=== PATIENT | female | born 1960 | race Caucasian/White ===

== ENCOUNTER 2017-08-05 09:04 | Emergency (ER) | payer BC, SELFPAY ==
[2017-08-05 09:26] VITALS: BP 122/77; PULSE 74; RESP 16; TEMP 36.5; O2SAT 98; BMI 27.9
--- NOTE | 2017-08-05 09:37 | HMH.EDUTC ---
[facility] [place] Clinical Impression: URI (upper respiratory infection) Qualifiers: URI type: unspecified URI Qualified Code(s): J06.9 - Acute upper respiratory infection, unspecified Disposition: Home, Self-Care Condition on Discharge: Good Instructions: Sore Throat Additional Instructions: * Monitor Temp. Tylenol and/or Ibuprofen as needed. ER if fever is no less than 101 despite alternating Tylenol and Ibuprofen * Encourage fluids, water, Gatorade, powerade, pedialyte if /toddler/or child * Warm salt water gargles for throat irritation *Warm fluids *Sore throat lozenges *Sleep elevated *humidifier or vaporizer Lots of rest Increase fluids, water, Gatorade, powerade *Your throat swab was sent to lab for culture. Those results area typically sent to your primary care physician. Be sure to follow up in 2-3 days if no improvement so they can review those results and treat if necessary If you dont have primary care I recommend you get one, but in the mean time you will have to return to a walk in clinic Follow up IMMEDIATELY for new or worsening of symptoms OR no noticeable improvement over the next 48-72 hours. 911 immediately for any life threatening symptoms such as chest pain or difficulty breathing Prescriptions: Azithromycin [Z-Rafael 250mg Tab] 250 mg PO UD DOSE PK #6 tab Time of Disposition: 09:53 Medical Decision Making - Medical Records Medical records reviewed: Yes: I reviewed the patient's medical records. - Elijah Inquiry Pt receiving controlled substance: No Elijah was queried for this patient: No Vital Signs: 08/05/17 09:26 Temperature 97.7 F Temperature Source Temporal Artery Scan Pulse Rate [Right] 74 Respiratory Rate 16 Blood Pressure [Right Arm] 122/77 Blood Pressure Mean [Right Arm] 92 Blood Pressure Source [Right Arm] Automatic Cuff Blood Pressure Position [Right Arm] Sitting 02 Sat by Pulse Oximetry 98 Oxygen Delivery Method Room Air - Lab Data Lab results reviewed: Yes: I reviewed the patient's lab results. [facility] H[place] - General Stated complaint: sore throat ear pain Time Seen by Provider: 08/05/17 09:30 Mode of Arrival: Ambulatory Source of Information: Patient Limitations: No Limitations Description of Symptoms (Recalled from Triage Doc. by RN): SORE THROAT, EAR ACHE 2 DAYS HEENT Symptoms (Recalled from RN notes): Yes Resp Symptoms (Recalled from RN notes): No Skin Symptoms (Recalled from RN notes): No MS Symptoms (Recalled from RN notes): No Functional Status (Recalled from RN notes): N - History of Present Illness Provider Complaint: Patient state that she has been having sore throat and ear pressure for several days now that has not improved State that she also feels like she has some swollen lymph nodes on left side of neck State that she was recently exposed to strep throat - Related Data Home Medications Medication Instructions Recorded Confirmed Meloxicam [Meloxicam] 15 mg PO DAILY 08/05/17 08/05/17 Verapamil HCl [Verapamil ER] 120 mg PO DAILY 08/05/17 08/05/17 Previous Rx's Medication Instructions Recorded Azithromycin [Z-Rafael 250mg Tab] 250 mg PO UD DOSE PK #6 tab 08/05/17 Allergies Allergy/AdvReac Type Severity Reaction Status Date / Time amoxicillin [From AUGMENTIN] Allergy Unknown Unverified 05/11/17 14:54 clavulanic acid Allergy Unknown Unverified 05/11/17 14:54 [From AUGMENTIN] codeine [CODEINE] Allergy Unknown Verified 08/05/17 09:29 - Worker's Comp Is this a Worker's Comp case?: No [facility] History I have reviewed the patient's past medical history: Yes - Social History Alcohol Intake: never - Psychiatric History Expresses thoughts of harming self/others: None Suicide Plan Description: No Plan ROS Obtained: Yes All systems reviewed & no additional complaints - Constitutional Constitutional: Reports chills, Denies fever(s) - ENT Ears, Nose, Mouth, and Throat: Reports sore throat Physical Exam - General
[2017-08-05 09:39] LABS: UTC Strep Screen (Rapid) Negative (Negative)
--- NOTE | 2017-08-05 09:41 | ED_ITS ---
[facility] [place] Disposition Clinical Impression: URI (upper respiratory infection) Qualifiers: URI type: unspecified URI Qualified Code(s): J06.9 - Acute upper respiratory infection, unspecified Disposition: Home, Self-Care Condition on Discharge: Good Instructions: Sore Throat Additional Instructions: * Monitor Temp. Tylenol and/or Ibuprofen as needed. ER if fever is no less than 101 despite alternating Tylenol and Ibuprofen * Encourage fluids, water, Gatorade, powerade, pedialyte if infant/toddler/or child * Warm salt water gargles for throat irritation *Warm fluids *Sore throat lozenges *Sleep elevated *humidifier or vaporizer Lots of rest Increase fluids, water, Gatorade, powerade *Your throat swab was sent to lab for culture. Those results area typically sent to your primary care physician. Be sure to follow up in 2-3 days if no improvement so they can review those results and treat if necessary If you don? t have primary care I recommend you get one, but in the mean time you will have to return to a walk in clinic Follow up IMMEDIATELY for new or worsening of symptoms OR no noticeable improvement over the next 48-72 hours. 911 immediately for any life threatening symptoms such as chest pain or difficulty breathing Prescriptions: Azithromycin [Z-Rafael 250mg Tab] 250 mg PO UD DOSE PK #6 tab Time of Disposition: 09:53 Medical Decision Making - Medical Records Medical records reviewed: Yes: I reviewed the patient's medical records. - Elijah Inquiry Pt receiving controlled substance: No Elijah was queried for this patient: No Vital Signs: 08/05/17 09:26 Temperature 97.7 F Temperature Source Temporal Artery Scan Pulse Rate [Right] 74 Respiratory Rate 16 Blood Pressure [Right Arm] 122/77 Blood Pressure Mean [Right Arm] 92 Blood Pressure Source [Right Arm] Automatic Cuff Blood Pressure Position [Right Arm] Sitting 02 Sat by Pulse Oximetry 98 Oxygen Delivery Method Room Air - Lab Data Lab results reviewed: Yes: I reviewed the patient's lab results. [facility] [place] HPI - General Stated complaint: sore throat ear pain Time Seen by Provider: 08/05/17 09:30 Mode of Arrival: Ambulatory Source of Information: Patient Limitations: No Limitations Description of Symptoms (Recalled from Triage Doc. by RN): SORE THROAT, EAR ACHE 2 DAYS HEENT Symptoms (Recalled from RN notes): Yes Resp Symptoms (Recalled from RN notes): No Skin Symptoms (Recalled from RN notes): No MS Symptoms (Recalled from RN notes): No Functional Status (Recalled from RN notes): N - History of Present Illness Provider Complaint: Patient state that she has been having sore throat and ear pressure for several days now that has not improved State that she also feels like she has some swollen lymph nodes on left side of neck State that she was recently exposed to strep throat - Related Data Home Medications Medication Instructions Recorded Confirmed Meloxicam [Meloxicam] 15 mg PO DAILY 08/05/17 08/05/17 Verapamil HCl [Verapamil ER] 120 mg PO DAILY 08/05/17 08/05/17 Previous Rx's Medication Instructions Recorded Azithromycin [Z-Rafael 250mg Tab] 250 mg PO UD DOSE PK #6 tab 08/05/17 Allergies Allergy/AdvReac Type Severity Reaction Status Date / Time amoxicillin [From AUGMENTIN] Allergy Unknown Unverified 05/11/17 14:54 clavulanic acid Allergy Unknown Unverified 05/11/17 14:
[2017-08-05 09:57] VITALS: BP 127/77; PULSE 74; RESP 16; TEMP 36.6
== END 2017-08-05 10:01 | disposition home or self-care (01) ==
PROVIDERS: Emergency Provider Nurse Practitioner
DX: J06.9 Acute upper respiratory infection, unspecified (principal); Z88.1 Allergy status to other antibiotic agents; Z88.6 Allergy status to analgesic agent
CPT/HCPCS: 87880; 99201

== ENCOUNTER 2019-04-17 17:00 | Outpatient (RCR) | payer BC, SELFPAY ==
--- NOTE | 2019-04-05 17:45 | HMH.PTOPEV ---
PT Outpatient Evaluation Rehab PT Outpatient Evaluation Start: 04/05/19 16:42 Freq: Status: Active Protocol: Document 04/05/19 16:46 [email or web address] (Rec: 04/05/19 17:43 RICKDIRK [id number]) Electronically Signed By Raghu Wahl, PT 04/05/19 16:46 Outpatient Therapy Subjective History Subjective History This is the initial Physical Therapy evaluation for Nisa Hatch. Pt is a 58 y/o female referred to PT for c/o R shoulder pain. Pt reports pain began in january. Pt reports she was mudding and painting a ceiling over a two day period and began noticing pain in R shoulder. Pt reports she was mostly on a ladder painting and mudding overhead and behind her. Pt reports pain gradually increased over several days. Pt reports pain has slowly increased to the point where pain has become almost constant. Chief Complaint Pain Symptom Type Ache,Throb,Sharp,Stabbing Symptoms Relieved By Rest/Positioning,Prescription Meds Symptoms Aggravated By Physical Activity,Lifting Prior Functional Limitations None Current Functional Limitations Reaching,Lifting,Housework, Driving,Recreation Activity Symptom Description Intermittent Level of pain today (0-10) 3 Pain scale - at its best (0-10) 0 Pain scale - at its worst (0-10) 5 Shoulder/Elbow Eval Shoulder Objective Measurements Palpation Tenderness tenderness shoulder exam standard right tenderness over the bicipital tendon right shoulder exam standard tenderness over the SA bursa shoulder right exam standard Shoulder Palpation Findings Tenderness Shoulder ROM Bilateral Shoulder ROM Limitations Pain pain with active ROM shoulder exam right standard full ROM shoulder exam standard bilateral Shoulder MMT Right Shoulder External Rotation Strength 4 Good Grade Shoulder Internal Rotation Strength 4 Good Grade Supraspinatus Strength Grade 4 Good Shoulder Strength Patient Testing Sitting Position Shoulder Special Tests impingement sign present shoulder exam right standard Shoulder Empty Can (Supraspinatus) Test
== END 2019-04-17 17:05 | disposition home or self-care (01) ==
LOC: PT 17:00
PROVIDERS: PCP Family Medicine; Visit Provider Emergency Medicine
DX: S46.811A Strain of other muscles, fascia and tendons at shoulder and upper arm level, right arm, initial encounter (principal)
CPT/HCPCS: 97010; 97014; 97016; 97110; 97163; G0283

== ENCOUNTER → 2019-07-27 10:00 | Outpatient (CLI) | payer BC, SELFPAY ==
--- NOTE | 2019-07-27 10:04 | XR_ITS ---
PROCEDURE: XR SHOULDER RT MIN 2V CLINICAL INDICATION: RT SHOULDER PAIN COMPARISON: No exams were available for comparison FINDINGS: There are mild osteoarthritic changes at the acromioclavicular joint and glenohumeral joint. No fracture or dislocation. No lytic or blastic change. No significant subacromial stenosis. IMPRESSION: Mild osteoarthritic change Dictated by: Denis Mario MD 07/27/2019 16:26 Electronically signed by Denis Mario MD in [place] 07/27/2019 16:26
== END ==
PROVIDERS: PCP Family Medicine; Visit Provider Family Medicine
DX: M25.511 Pain in right shoulder (principal)
CPT/HCPCS: 73030

== ENCOUNTER → 2019-10-23 15:47 | Outpatient (CLI) | payer BC, SELFPAY ==
[2019-10-23 17:29] LABS: Basophils # 0.1 K/mm3 (0-0.2); Basophils % 0.4 % (0.1-2.0); Eosinophils # 0.1 K/mm3 (0.0-0.4); Eosinophils % 0.7 % (0.1-12.0); Hematocrit 48.8 % (37.0-47.0); Lymphocytes # 0.9 K/mm3 (0.7-4.5); Lymphocytes % 6.3 % (10-50); Mean Corpuscular HGB Conc 32.8 g/dL (31.8-35.4); Mean Corpuscular Hemoglobin 31.6 pg (27.0-31.2); Mean Corpuscular Volume 96.6 fl (81-99); Mean Platelet Volume 7.6 fl (7.4-10.4); Monocytes # 0.6 K/mm3 (0.1-1.0); Neutrophils # 12.5 K/mm3 (1.8-7.8); Neutrophils % 88.7 % (37.0-80.0); Platelet Count 245 K/mm3 (142-424); Red Blood Count 5.05 M/mm3 (4.20-5.40); Red Cell Distribution Width 12.7 % (11.5-17.5); White Blood Count 14.1 K/mm3 (4.8-10.8)
[2019-10-23 17:32] LABS: MANUAL DIFFERENTIAL MANUAL DIFFERENTIAL (MANUAL DIFF)
[2019-10-23 19:52] LABS: Strep Scrn Group A (Rapid) Positive (Negative)
[2019-10-23 21:21] LABS: Lymphocytes % 8 % (10-50); Monocytes % 1 % (2-9); Neutrophils % 91 % (42-76); Platelet Estimate Normal; Stomatocytes 1+; Total Cells Counted 100
[2019-10-25 13:48] LABS: Covid-19 Nasal PCR Sendout Lex NOT DETECTED
== END ==
PROVIDERS: PCP Family Medicine; Visit Provider Family Medicine
DX: Z03.818 Encounter for observation for suspected exposure to other biological agents ruled out (principal)
CPT/HCPCS: 85007; 85025; 87430; U0004

== ENCOUNTER → 2019-11-13 14:51 | Outpatient (CLI) | payer BC, SELFPAY ==
--- NOTE | 2019-11-13 14:56 | XR_ITS ---
PROCEDURE: XR LUMBAR SPINE MIN 4V CLINICAL INDICATION: RT SIDE LOW BACK PAIN,DDD COMPARISON: LS5 LUMBAR SPINE 5 VIEWS from 01/10/2014 FINDINGS: Mid lumbar dextro rotatory scoliosis is again noted. Grade 1 anterolisthesis at L4-5 is demonstrated as well as vacuum joint degenerative narrowing at L5-S1. There is no fracture or dislocation. L4-5 and L5-S1 facet arthropathy is demonstrated. IMPRESSION: No significant change. Degenerative scoliosis as above. Dictated by: Win Birmingham 11/13/2019 15:25 Electronically signed by Win Birmingham in [place] 11/13/2019 15:25
== END ==
PROVIDERS: PCP Family Medicine; Visit Provider Family Medicine
DX: M54.41 Lumbago with sciatica, right side (principal); M51.36 Other intervertebral disc degeneration, lumbar region
CPT/HCPCS: 72110

== ENCOUNTER → 2020-04-01 07:42 | Outpatient (CLI) | payer BC, SELFPAY ==
[2020-04-01 08:51] LABS: Basophils % 0.6 % (0.1-2.0); Eosinophils # 0.2 K/mm3 (0.0-0.4); Eosinophils % 3.3 % (0.1-12.0); Hematocrit 45.5 % (37.0-47.0); Hemoglobin 14.9 g/dL (12.2-16.2); Lymphocytes # 2.1 K/mm3 (0.7-4.5); Lymphocytes % 37.3 % (10-50); Mean Corpuscular HGB Conc 32.7 g/dL (31.8-35.4); Mean Corpuscular Hemoglobin 30.6 pg (27.0-31.2); Mean Corpuscular Volume 93.5 fl (81-99); Mean Platelet Volume 8.7 fl (7.4-10.4); Monocytes # 0.4 K/mm3 (0.1-1.0); Monocytes % 7.7 % (1.7-9.3); Neutrophils # 2.9 K/mm3 (1.8-7.8); Neutrophils % 51.1 % (37.0-80.0); Platelet Count 287 K/mm3 (142-424); Red Blood Count 4.87 M/mm3 (4.20-5.40); Red Cell Distribution Width 12.9 % (11.5-17.5); White Blood Count 5.7 K/mm3 (4.8-10.8)
[2020-04-01 09:13] LABS: Chloride 103 mmol/L (98-107); Potassium 4.2 mmoL/L (3.5-5.1); Sodium 140 mmol/L (136-145)
[2020-04-01 09:15] LABS: Blood Urea Nitrogen 15 mg/dl (7-17); Estimated Glomerular Filt Rate 102 ml/min (>60); GFR (African American) 123 ML/MIN (>60)
[2020-04-01 09:16] LABS: Alanine Aminotransferase 194 U/L (12-78); Albumin Level 4.5 g/dl (3.5-5.0); Albumin/Globulin Ratio 1.5 (1.1-1.8); Alkaline Phosphatase 84 U/L (38-126); Anion Gap 12.2 mEq/L (5-15); Aspartate Amino Transferase 92 U/L (14-36); Bilirubin,Total 0.4 mg/dl (0.2-1.3); Calcium 10.2 mg/dl (8.4-10.2); Carbon Dioxide 29 mmol/L (22.0-30.0); Chol/HDL Ratio 3.4 (1-3.5); Cholesterol 181 mg/dl (140-200); Globulin 3.1 g/dL (1.3-3.2); Glucose 94 mg/dl (74-100); HDL Cholesterol 53 mg/dl (40-60); Total Protein,Serum 7.6 g/dl (6.3-8.2); Triglycerides 125 mg/dl (30-150); VLDL Cholesterol 25 mg/dL (0-40)
[2020-04-01 09:27] LABS: Direct LDL Cholesterol 106.22 mg/dL (100-129)
[2020-04-01 10:30] LABS: Vitamin B12 > 1000 pg/mL (239-931)
[2020-04-03 10:47] LABS: Ceruloplasmin 25.7 mg/dL (19.0-39.0)
[2020-04-07 08:00] LABS: Vitamin B6 6.5 ug/L (2.0-32.8)
[2020-04-08 09:19] LABS: 1,25 Dihydroxy Vitamin D 42 pg/mL (.); 1,25-Dihydroxy, Vitamin D-2 <10 pg/mL (.); 1,25-Dihydroxy, Vitamin D-3 41 pg/mL (.)
[2020-04-08 20:55] LABS: Vitamin E Alpha Tocopherol 8.3 mg/L (9.0-29.0)
[2020-04-09 15:21] LABS: Vitamin E Gamma Tocopherol 0.9 mg/L (0.5-4.9)
== END ==
PROVIDERS: Visit Provider Psychiatry & Neurology Neurology
DX: M62.838 Other muscle spasm (principal); G62.9 Polyneuropathy, unspecified; G25.81 Restless legs syndrome; E55.9 Vitamin D deficiency, unspecified; R53.83 Other fatigue; Z79.899 Other long term (current) drug therapy
CPT/HCPCS: 36415; 80053; 80061; 82390; 82525; 82607; 82652; 82746; 84207; 84425; 84446; 85025

== ENCOUNTER 2021-05-31 09:42 | Emergency (ER) | payer BC, SELFPAY ==
[2021-05-31 10:30] VITALS: BP 124/81; PULSE 92; RESP 21; TEMP 36.7; O2SAT 98; BMI 25.2
--- NOTE | 2021-05-31 10:56 | HMH.EDUTC ---
[facility] [place] Disposition Clinical Impression: Strep throat Disposition: Home, Self-Care Condition on Discharge: Good Instructions: Strep Throat, DI for Strep Throat Additional Instructions: *Monitor Temp, Over the counter Motrin or Tylenol as directed/as needed Tylenol every 4 hours and Motrin every 6 hours (as long as your family doctor has told you that you can take it) for fever or pain. and straight to ER if unable to lower temp less than 101.0 after medication given *Warm salt water gargles may help to soothe the throat *Throat Lozenges *Warm fluids like tea with honey may help to soothe the throat *Sleep elevated *Humidifier/Vaporizer *If you did not take Penicillin shot or was unable to, start taking antibiotic immediately and make sure that you take it for the FULL length of time although you should start to feel better in 24-48 hours *change toothbrush and toothpaste 24-48 hours after starting to take antibiotics so you do not reinfect yourself Monitor Temp. Tylenol and/or Ibuprofen as needed. ER if fever is no less than 101 despite alternating Tylenol and Ibuprofen * Encourage fluids, water, Gatorade, powerade, pedialyte if infant/toddler/or child *Cold fluids, popsicles and ice cream may feel good on his throat Follow up IMMEDIATELY for new or worsening symptoms or no Noticeable improvement over the next 48-72 hours. 911 for difficulty breathing or swallowing Referrals: Michael Perdomo MD [Primary Care Provider] - As needed Medical Decision Making - Elijah Inquiry Pt receiving controlled substance: No Elijah was queried for this patient: No Vital Signs: 05/31/21 10:30 05/31/21 11:13 Temperature 98.1 F 98.1 F Temperature Source Oral Pulse Rate 92 H Pulse Rate [Right Brachial] 92 H Respiratory Rate 21 21 Blood Pressure 124/81 Blood Pressure [Right Arm] 124/81 Blood Pressure Mean [Right Arm] 95 Blood Pressure Source [Right Arm] Automatic Cuff Blood Pressure Position [Right Arm] Sitting 02 Sat by Pulse Oximetry 98 Oxygen Delivery Method Room Air - Lab Data Lab results reviewed: Yes: I reviewed the patient's lab results. Lab Results 05/31/21 10:43: Strep Scn Rapid Clinic Negative Orders (Tests/Meds): ED MEDICATIONS Discontinued Medications Generic Name Dose Route Start Last Admin Trade Name Trina PRN Reason Stop Dose Admin Penicillin G Benzathine 1,200,000 unit 05/31/21 11:03 05/31/21 11:11 Penicillin G Benzathine 1,200,000 Units/2ml Syringe IM 05/31/21 11:04 1,200,000 unit ONCE ONE Administration ORDERS Category Date Time Status Strep Screen Confirmation Stat Micro 05/31/21 10:43 Received Medical Decision Narrative: Patient state that she is not able to take Augmentin due to upset stomach and diarrhea but she has taken PCN and amoxicillin in the past without problems or reactions Patient rapid strep negative however exudate noted therefore will treat for strep throat [facility] [place] HPI - General Stated complaint: cough, sore throat, congestion Time Seen by Provider: 05/31/21 10:56 Mode of Arrival: Ambulatory Source of Information: Patient Limitations: No Limitations Description of Symptoms (Recalled from Triage Doc. by RN): PATIENT C/O SORE THROAT AND COUGH X 2 DAYS HEENT Symptoms (Recalled from RN notes): Yes Resp Symptoms (Recalled from RN notes): Yes Skin Symptoms (Recalled from RN notes): No MS Symptoms (Recalled from RN notes): No Functional Status (Recalled from RN notes): WNL - History of Present Illness Provider Complaint: Patient state that she has been having cough and sore throat for several days State that she did a [facility] and they give her some medication for cough State that when she got up this morning her throat was worse and had white patchy like areas like she gets when she has strep throat so she came in to get checked - Related Data Home Medications Medication Instructions Recorded Confirmed Meloxicam 15 mg PO DAILY
[2021-05-31 11:03] LABS: UTC Strep Screen (Rapid) Negative (Negative)
[2021-05-31 11:13] VITALS: BP 124/81; PULSE 92; RESP 21; TEMP 36.7; O2SAT 98
== END 2021-05-31 11:36 | disposition home or self-care (01) ==
PROVIDERS: Emergency Provider Nurse Practitioner; PCP Family Medicine
DX: J02.0 Streptococcal pharyngitis (principal); I10 Essential (primary) hypertension
CPT/HCPCS: 87880; 96372; 99202; G0463; J0561

== ENCOUNTER → 2021-07-25 11:02 | Outpatient (CLI) | payer BC, SELFPAY ==
[2021-07-25 11:43] LABS: Basophils # 0.1 K/mm3 (0-0.2); Basophils % 3.5 % (0.1-2.0); Eosinophils % 0.4 % (0.1-12.0); Hematocrit 46.7 % (37.0-47.0); Hemoglobin 15.3 g/dL (12.2-16.2); Lymphocytes # 1.3 K/mm3 (0.7-4.5); Lymphocytes % 37.5 % (10-50); Mean Corpuscular HGB Conc 32.8 g/dL (31.8-35.4); Mean Corpuscular Hemoglobin 31.1 pg (27.0-31.2); Mean Platelet Volume 8.9 fl (7.4-10.4); Monocytes # 0.4 K/mm3 (0.1-1.0); Monocytes % 11.4 % (1.7-9.3); Neutrophils # 1.6 K/mm3 (1.8-7.8); Neutrophils % 47.3 % (37.0-80.0); Platelet Count 229 K/mm3 (142-424); Red Blood Count 4.92 M/mm3 (4.20-5.40); Red Cell Distribution Width 12.7 % (11.5-17.5); White Blood Count 3.5 K/mm3 (4.8-10.8)
== END ==
PROVIDERS: PCP Physician Assistant; Visit Provider Physician Assistant
DX: U07.1 COVID-19 (principal)
CPT/HCPCS: 36415; 85025; C9803; U0003; U0005

== ENCOUNTER 2021-11-05 16:10 | Observation (INO) | payer BC, OTHER, SELFPAY ==
[2021-11-05 16:24] VITALS: BP 121/73; PULSE 86; RESP 16; TEMP 37.2; O2SAT 98; BMI 27.3
--- NOTE | 2021-11-05 16:59 | CT_ITS ---
PROCEDURE INFORMATION: Exam: CT Abdomen And Pelvis With Contrast Exam date and time: 11/05/2021 7:12 PM Age: 61 years old Clinical indication: Abdominal tenderness; Additional info: Possible diverticulitis TECHNIQUE: Imaging protocol: Computed tomography of the abdomen and pelvis with contrast. Radiation optimization: All CT scans at this facility use at least one of these dose optimization techniques: automated exposure control; mA and/or kV adjustment per patient size (includes targeted exams where dose is matched to clinical indication); or iterative reconstruction. Contrast material: ISOVUE; Contrast volume: 75 ml; Contrast route: IV; Other contrast: Oral; COMPARISON: CR XR LUMBAR SPINE MIN 4V 11/13/2019 2:59 PM FINDINGS: Lungs: Streaky opacities at the lung bases. Liver: Normal. No mass. Gallbladder and bile ducts: No calcified stones. No ductal dilation. Pancreas: Normal enhancement. No ductal dilation. Spleen: There are multiple splenic calcifications likely on the basis of prior granulomatous exposure. Adrenal glands: No mass. Kidneys and ureters: No hydronephrosis. Stomach and bowel: Diverticulosis coli with thickening and inflammatory stranding surrounding the sigmoid colon. Appendix: No evidence of appendicitis. Intraperitoneal space: No free air. No significant fluid collection. Vasculature: No abdominal aortic aneurysm. Lymph nodes: No enlarged lymph nodes. Urinary bladder: No acute abnormality. Reproductive: No acute abnormality. Bones/joints: S shaped curvature of the spine. No fracture. Soft tissues: No soft tissue swelling. IMPRESSION: Diverticulosis coli with thickening and inflammatory stranding surrounding the sigmoid colon compatible with acute diverticulitis.
[2021-11-05 17:03] LABS: Coronavirus 19, PCR Not Detected (NotDetected); Influenza A, PCR Not Detected (NotDetected); Influenza B, PCR Not Detected (NotDetected)
--- NOTE | 2021-11-05 17:04 | HMH.HP ---
*Admission Date: 11/05/21 <Sharmin Ellison 11/05/21 17:10> *Chief complaint: abdominal pain <Sharmin Ellison 11/05/21 17:10> *History of present illness: Ms. Hatch is a 61-year-old female who presented to the office of [facility] today with left lower quadrant pain rated an 8 out of 10 on the pain scale. She states this pain began a little over a week ago and has gotten worse. In the last few days she has run a fever and had chills. She states she has been unable to have a bowel movement the past few days and feels very bloated. She has not been eating or drinking. On her previous colonoscopy, she did have diverticulosis and she is scheduled for another colonoscopy on 12/24/2021. She has not noticed any blood in her stool. She is extremely weak and can barely walk. Evaluation in the office showed a white blood cell count of 16.1. She did have some 1+ leukocytes and trace blood in her urine and this was cultured. It was felt she had a diverticulitis and was admitted for IV antibiotics and a CT scan. <Sharmin Ellison 11/05/21 17:10> [facility] History I have reviewed the patient's past medical history: Yes <Sharmin Ellison 11/05/21 17:10> Medical History: Reports:: Gastroesophageal Reflux Disease(GERD), Hyperlipidemia, Hypertension <Sharmin Ellison 11/05/21 17:10> *Have you ever received a pneumonia vaccine?: No <Sharmin Ellison 11/05/21 17:10> *Have you received a flu vaccine this season?: No <Sharmin Ellison 11/05/21 17:10> Other Medical History: Reports: Arthritis, Hypothyroidism, Other <Sharmin Ellison 11/05/21 17:10> Other Surgeries: Yes: Cholecystectomy, Colonoscopy, Hysterectomy-Partial <Sharmin Ellison 11/05/21 17:10> Amputation: No <Sharmin Ellison 11/05/21 17:10> Fractures: No <Sharmin Ellison 11/05/21 17:10> - *Social History Smoking Status: Never smoker <Sharmin Ellison 11/05/21 17:10> Alcohol Intake: never <[facility] 11/05/21 17:10> Substance Use Type: denies use <[facility] 11/05/21 17:10> *Occupational Status:: other <[facility] 11/05/21 17:10> Housing: house <[facility] 11/05/21 17:10> *Travel in the last 8 weeks: None <[facility] 11/05/21 17:10> Family Hx:: Asthma, Cancer, Hyperlipidemia, Diabetes, Heart Attack, Hypertension, Kidney Disease <[facility] 11/05/21 17:10> Review of Systems - Constitutional Reports chills, Reports fever(s), Reports weakness <[facility] 11/05/21 17:10> - Eyes Denies blurry vision, Denies double vision <[facility] 11/05/21 17:10> - ENT Denies nasal congestion, Denies sore throat [facility] 11/05/21 17:10> - *Cardiovascular Reports shortness of breath, Denies chest pain <[facility] 11/05/21 17:10> - *Respiratory Reports shortness of breath, Denies cough <[facility] 11/05/21 17:10> - *Gastrointestinal Reports abdominal pain, Reports nausea, Denies loose stools, Denies vomiting <[facility] 11/05/21 17:10> - *Genitourinary Denies difficulty urinating, Denies painful urination <[facility] 11/05/21 17:10> - *Musculoskeletal Reports joint pain, Reports body aches <[facility] 11/05/21 17:10> - *Neurologic Reports weakness, Denies headache(s), Denies dizziness <[facility] 11/05/21 17:10> Meds Home Medications Medication Instructions Recorded Confirmed Type Meloxicam 15 mg PO DAILY 08/05/17 11/05/21 History gabapentin 600 mg tablet,extended 600 mg PO BID tab 09/23/17 11/05/21 History release 24 hr Tizanidine HCl [Zanaflex 4mg 4 mg PO HS 05/31/21 11/05/21 History tablet] Levothyroxine Sodium 25 mcg PO DAILY 11/05/21 11/05/21 History [Levothyroxine] <Michael Perdomo - 11/05/21 18:06> Allergies Allergy/AdvReac Type Severity Reaction Status Date / Time amoxicillin [From AUGMENTIN] Allergy Unknown Verified 04/22/19 13:37 codeine [CODEINE] Allergy Unknown Verified 04/22/19 13:37 clavulanic acid AdvReac Unknown Verified 05/31/21 11:01 [Fr
[2021-11-05 17:46] LABS: Basophils # 0.1 K/mm3 (0-0.2); Eosinophils # 0.1 K/mm3 (0.0-0.4); Hematocrit 40.1 % (37.0-47.0); Hemoglobin 13.8 g/dL (12.2-16.2); Lymphocytes # 1.8 K/mm3 (0.7-4.5); Lymphocytes % 13.3 % (10-50); Mean Corpuscular HGB Conc 34.3 g/dL (31.8-35.4); Mean Corpuscular Hemoglobin 32.4 pg (27.0-31.2); Mean Corpuscular Volume 94.5 fl (81-99); Mean Platelet Volume 8.2 fl (7.4-10.4); Monocytes # 0.8 K/mm3 (0.1-1.0); Monocytes % 5.8 % (1.7-9.3); Neutrophils # 10.4 K/mm3 (1.8-7.8); Neutrophils % 78.9 % (37.0-80.0); Platelet Count 258 K/mm3 (142-424); Red Blood Count 4.25 M/mm3 (4.20-5.40); Red Cell Distribution Width 12.7 % (11.5-17.5); White Blood Count 13.2 K/mm3 (4.8-10.8)
[2021-11-05 17:47] LABS: Chloride 101 mmol/L (98-107)
[2021-11-05 17:48] LABS: Potassium 3.6 mmoL/L (3.5-5.1); Sodium 135 mmol/L (136-145)
[2021-11-05 17:50] LABS: Alanine Aminotransferase 148 U/L (12-78); Alkaline Phosphatase 103 U/L (38-126); Anion Gap 12.6 mEq/L (5-15); Aspartate Amino Transferase 112 U/L (14-36); Bilirubin,Total 1.2 mg/dl (0.2-1.3); Blood Urea Nitrogen 8 mg/dl (7-17); Carbon Dioxide 25 mmol/L (22.0-30.0); Creatinine Clearance Estimated 67 mL/min (50-200); Estimated Glomerular Filt Rate 125 ml/min (>60); GFR (African American) 151 ML/MIN (>60)
[2021-11-05 17:51] LABS: Albumin Level 4.4 g/dl (3.5-5.0); Albumin/Globulin Ratio 1.2 (1.1-1.8); Calcium 9.4 mg/dl (8.4-10.2); Globulin 3.6 g/dL (1.3-3.2); Glucose 111 mg/dl (74-100)
[2021-11-05 18:31] LABS: Lactic Acid 1.5 mmol/L (0.7-2.1)
[2021-11-05 20:00] VITALS: BP 125/68; PULSE 70; RESP 21; TEMP 37.2; O2SAT 95
[2021-11-06 04:00] VITALS: BP 132/76; PULSE 76; RESP 18; TEMP 36.6; O2SAT 97
[2021-11-06 05:00] VITALS: BMI 27.3
--- NOTE | 2021-11-06 05:20 | PC.NURSE ---
pt has rested t/o most of shift, has ambulated to BR with standby assist, patient did state she was able to have a small bowel movement this shift, remains on room air with O2 sats 95-97%, no complaints of pain since beginning of shift
--- NOTE | 2021-11-06 07:25 | P.CONPHA_ITS ---
[facility] Pharmacy VTE Monitoring - Patient Demographics Admission date: 11/05/21 Report Date: 11/06/21 Time: 07:25 Allergies/Adverse Reactions: Patient Allergies amoxicillin [From AUGMENTIN] Allergy (Unknown, Verified 04/22/19 13:37) codeine [CODEINE] Allergy (Unknown, Verified 04/22/19 13:37) clavulanic acid [From AUGMENTIN] Adverse Reaction (Unknown, Verified 05/31/21 11:01) Height: 1.63 m Weight: 72.54 kg Patient Problems: Current Active Problems Left lower quadrant pain (Acute) Leukocytosis (Acute) Hypertension (Chronic) Hypothyroidism (Acute) - VTE Risk Labs: VTE Related Lab Results Hgb 13.8 g/dL (12.2-16.2) 11/05/21 17:20 Hct 40.1 % (37.0-47.0) 11/05/21 17:20 Plt Count 258 K/mm3 (142-424) 11/05/21 17:20 BUN 8 mg/dl (7-17) 11/05/21 17:20 Creatinine 0.50 mg/dl (0.52-1.04) L 11/05/21 17:20 Estimated Creat Clear 67 mL/min (50-200) 11/05/21 17:20 VTE Score: 1 - Prophylaxis VTE Prophylaxis Ordered?: Yes Types of VTE Prophylaxis: TEDS Knee High Location of Applied Device: Bilateral Lower Extremeties
--- NOTE | 2021-11-06 07:25 | HMH.PHAINT ---
MEDICATION RECONCILIATION COMPLETED ON PATIENT USING EXTERNAL FILL HISTORY FROM PHARMACY. -DUANE POSEY, MILADISD
[2021-11-06 08:00] VITALS: BP 114/54; PULSE 63; RESP 15; TEMP 36.7; O2SAT 98
--- NOTE | 2021-11-06 08:29 | HMH.ACPN2 ---
<Sharmin Ellison - Last Filed: 11/06/21 08:29> Internal Medicine - PN: Subj *Date: 11/06/21 *Time: 08:29 Interval history: Patient states she is feeling a little bit better this morning. She has been able to have a few small bowel movements and her left lower quadrant pain has improved slightly. She still did not rest well last night. She does want to try some clear liquids this morning. Exam Vital signs and Labs for Last 24 Hours: Temp Pulse Resp BP Pulse Ox 97.8 F 76 18 132/76 97 11/06/21 04:00 11/06/21 04:00 11/06/21 04:00 11/06/21 04:00 11/06/21 04:00 Laboratory Results - last 24 hr 11/05/21 16:52: SARS-CoV-2 (PCR) Not detected, Influenza A Untype (PCR) Not detected, Influenza Type B (PCR) Not detected 11/05/21 17:20: WBC 13.2 H, RBC 4.25, Hgb 13.8, Hct 40.1, MCV 94.5, MCH 32.4 H, MCHC 34.3, RDW 12.7, Plt Count 258, MPV 8.2, Neut % (Auto) 78.9, Lymph % (Auto) 13.3, [place] % (Auto) 5.8, Eos % (Auto) 1.0, Baso % (Auto) 1.0, Neut # (Auto) 10.4 H, Lymph # (Auto) 1.8, [place] # (Auto) 0.8, Eos # (Auto) 0.1, Baso # (Auto) 0.1 11/05/21 17:20: Sodium 135 L, Potassium 3.6, Chloride 101, Carbon Dioxide 25, Anion Gap 12.6, BUN 8, Creatinine 0.50 L, Estimated Creat Clear 67, Estimated GFR 125, Est GFR ( Amer) 151, Glucose 111 H, Calcium 9.4, Total Bilirubin 1.2, AST 112 H, ALT 148 H, Alkaline Phosphatase 103, Total Protein 8.0, Albumin 4.4, Globulin 3.6 H, Albumin/Globulin Ratio 1.2 11/05/21 18:10: Lactate 1.5 I & O for Last 24 hours: Intake & Output 06/11/04/21 11/05/21 11/06/21 11:59 11:59 11:59 11:59 Intake Total 1313 / 1313 Balance 1313 / 1313 Weight 159 lb 14.773 oz - Constitutional no acute distress - *Routine Respiratory Exam Present: CTA bilaterally - *Routine Cardiovascular Exam Present: RRR - *Routine Abdominal Exam Present: soft, normoactive bowel sounds, tenderness (LLQ) - *Routine Extremities Exam Absent: cyanosis, clubbing, edema - *Routine Skin Exam Present: warm. Absent: rash - *Routine Neurological Exam Present: alert, oriented X3 Assessment and Plan (1) Diverticulitis Status: Acute Category: Medical Code(s): K57.92 - Diverticulitis of intestine, part unspecified, without perforation or abscess without bleeding (2) Left lower quadrant pain Status: Acute Category: Medical Code(s): R10.32 - Left lower quadrant pain (3) Leukocytosis Status: Acute Category: Medical Code(s): D72.829 - Elevated white blood cell count, unspecified (4) Hypertension Status: Chronic Category: Medical Code(s): I10 - Essential (primary) hypertension (5) Hypothyroidism Status: Acute Category: Medical Code(s): E03.9 - Hypothyroidism, unspecified - Assessment and plan all Dx Assessment and Plan for all problems:: We will continue IV antibiotics. Will started a clear liquid diet this morning. <Michael Perdomo - Last Filed: 11/06/21 08:33> Internal Medicine - PN: Subj *Date: 11/06/21 *Time: 08:32 Exam Vital signs and Labs for Last 24 Hours: Temp Pulse Resp BP Pulse Ox 97.8 F 76 18 132/76 97 11/06/21 04:00 11/06/21 04:00 11/06/21 04:00 11/06/21 04:00 11/06/21 04:00 Laboratory Results - last 24 hr 11/05/21 16:52: SARS-CoV-2 (PCR) Not detected, Influenza A Untype (PCR) Not detected, Influenza Type B (PCR) Not detected 11/05/21 17:20: WBC 13.2 H, RBC 4.25, Hgb 13.8, Hct 40.1, MCV 94.5, MCH 32.4 H, MCHC 34.3, RDW 12.7, Plt Count 258, MPV 8.2, Neut % (Auto) 78.9, Lymph % (Auto) 13.3, [place] % (Auto) 5.8, Eos % (Auto) 1.0, Baso % (Auto) 1.0, Neut # (Auto) 10.4 H, Lymph # (Auto) 1.8, [place] # (Auto) 0.8, Eos # (Auto) 0.1, Baso # (Auto) 0.1 11/05/21 17:20: Sodium 135 L, Potassium 3.6, Chloride 101, Carbon Dioxide 25, Anion Gap 12.6, BUN 8, Creatinine 0.50 L, Estimated Creat Clear 67, Estimated GFR 125, Est GFR ( Amer) 151, Glucose 111 H, Calcium 9.4, Total Bilirubin 1.2, AST 112 H, ALT 148 H, Alkaline Phosphatase 103, To
--- NOTE | 2021-11-06 15:31 | PC.NURSE ---
patient has done well. no complaints. drinking iced tea. has been up independently to use bathroom. no needs voiced at this time
[2021-11-06 16:00] VITALS: BP 112/58; PULSE 62; RESP 15; TEMP 36.4; O2SAT 98
[2021-11-06 20:00] VITALS: BP 119/70; PULSE 72; RESP 18; TEMP 37.1; O2SAT 98
[2021-11-07 04:00] VITALS: BP 119/63; PULSE 64; RESP 18; TEMP 36.7; O2SAT 97
[2021-11-07 05:00] VITALS: BMI 27.0
[2021-11-07 06:50] LABS: Basophils # 0.1 K/mm3 (0-0.2); Basophils % 1.8 % (0.1-2.0); Eosinophils # 0.2 K/mm3 (0.0-0.4); Eosinophils % 2.8 % (0.1-12.0); Hematocrit 37.7 % (37.0-47.0); Lymphocytes # 1.7 K/mm3 (0.7-4.5); Lymphocytes % 21.6 % (10-50); Mean Corpuscular HGB Conc 34.4 g/dL (31.8-35.4); Mean Corpuscular Hemoglobin 32.7 pg (27.0-31.2); Mean Corpuscular Volume 95.1 fl (81-99); Monocytes # 0.8 K/mm3 (0.1-1.0); Monocytes % 9.3 % (1.7-9.3); Neutrophils # 5.1 K/mm3 (1.8-7.8); Neutrophils % 64.4 % (37.0-80.0); Platelet Count 273 K/mm3 (142-424); Red Blood Count 3.97 M/mm3 (4.20-5.40); Red Cell Distribution Width 12.8 % (11.5-17.5)
[2021-11-07 06:59] LABS: Chloride 108 mmol/L (98-107); Potassium 3.5 mmoL/L (3.5-5.1); Sodium 140 mmol/L (136-145)
[2021-11-07 07:02] LABS: Alanine Aminotransferase 133 U/L (12-78); Albumin Level 3.7 g/dl (3.5-5.0); Albumin/Globulin Ratio 1.2 (1.1-1.8); Alkaline Phosphatase 89 U/L (38-126); Anion Gap 8.5 mEq/L (5-15); Aspartate Amino Transferase 68 U/L (14-36); Bilirubin,Total 0.4 mg/dl (0.2-1.3); Blood Urea Nitrogen 4 mg/dl (7-17); Carbon Dioxide 27 mmol/L (22.0-30.0); Creatinine Clearance Estimated 66 mL/min (50-200); Estimated Glomerular Filt Rate 125 ml/min (>60); GFR (African American) 151 ML/MIN (>60); Globulin 3.1 g/dL (1.3-3.2); Total Protein,Serum 6.8 g/dl (6.3-8.2)
[2021-11-07 07:03] LABS: Glucose 122 mg/dl (74-100)
[2021-11-07 08:00] VITALS: BP 115/74; PULSE 64; RESP 16; TEMP 36.6; O2SAT 98
--- NOTE | 2021-11-07 08:20 | HMH.ACPN2 ---
<Sharmin Ellison - Last Filed: 11/07/21 08:20> Internal Medicine - PN: Subj *Date: 11/07/21 *Time: 08:20 Interval history: Patient is feeling better this morning. She has tolerated her diet. Her pain has improved but has not resolved in the left lower quadrant. She slept last night and wants to go home today. Exam Vital signs and Labs for Last 24 Hours: Temp Pulse Resp BP Pulse Ox 97.8 F 64 16 115/74 98 11/07/21 08:00 11/07/21 08:00 11/07/21 08:00 11/07/21 08:00 11/07/21 08:00 Laboratory Results - last 24 hr 11/07/21 06:15: WBC 8.0 D, RBC 3.97 L, Hgb 13.0, Hct 37.7, MCV 95.1, MCH 32.7 H, MCHC 34.4, RDW 12.8, Plt Count 273, MPV 8.0, Neut % (Auto) 64.4, Lymph % (Auto) 21.6, [place] % (Auto) 9.3, Eos % (Auto) 2.8, Baso % (Auto) 1.8, Neut # (Auto) 5.1, Lymph # (Auto) 1.7, [place] # (Auto) 0.8, Eos # (Auto) 0.2, Baso # (Auto) 0.1 11/07/21 06:15: Sodium 140, Potassium 3.5, Chloride 108 H, Carbon Dioxide 27, Anion Gap 8.5, BUN 4 L D, Creatinine 0.50 L, Estimated Creat Clear 66, Estimated GFR 125, Est GFR ( Amer) 151, Glucose 122 H, Calcium 9.0, Total Bilirubin 0.4, AST 68 H D, ALT 133 H, Alkaline Phosphatase 89, Total Protein 6.8, Albumin 3.7, Globulin 3.1, Albumin/Globulin Ratio 1.2 I & O for Last 24 hours: Intake & Output 11/04/21 11/05/21 11/06/21 11/07/21 11:59 11:59 11:59 11:59 Intake Total 1313 / 1313 950 / 950 Balance 1313 / 1313 950 / 950 Weight 159 lb 14.773 oz 158 lb 6 oz - Constitutional no acute distress - *Routine Respiratory Exam Present: CTA bilaterally - *Routine Cardiovascular Exam Present: RRR - *Routine Abdominal Exam Present: soft, normoactive bowel sounds, tenderness (Left lower quadrant) - *Routine Extremities Exam Absent: cyanosis, clubbing, edema - *Routine Skin Exam Present: warm. Absent: rash - *Routine Neurological Exam Present: alert, oriented X3 Assessment and Plan (1) Diverticulitis Status: Acute Category: Medical Code(s): K57.92 - Diverticulitis of intestine, part unspecified, without perforation or abscess without bleeding (2) Left lower quadrant pain Status: Acute Category: Medical Code(s): R10.32 - Left lower quadrant pain (3) Leukocytosis Status: Acute Category: Medical Code(s): D72.829 - Elevated white blood cell count, unspecified (4) Hypertension Status: Chronic Category: Medical Code(s): I10 - Essential (primary) hypertension (5) Hypothyroidism Status: Acute Category: Medical Code(s): E03.9 - Hypothyroidism, unspecified - Assessment and plan all Dx Assessment and Plan for all problems:: Patient can likely be discharged home today on oral antibiotics. Will discuss with Dr. Perdomo. <Michael Perdomo - Last Filed: 11/07/21 08:54> Internal Medicine - PN: Subj *Date: 11/07/21 *Time: 08:53 Exam Vital signs and Labs for Last 24 Hours: Temp Pulse Resp BP Pulse Ox 97.8 F 64 16 115/74 98 11/07/21 08:00 11/07/21 08:00 11/07/21 08:00 11/07/21 08:00 11/07/21 08:00 Laboratory Results - last 24 hr 11/07/21 06:15: WBC 8.0 D, RBC 3.97 L, Hgb 13.0, Hct 37.7, MCV 95.1, MCH 32.7 H, MCHC 34.4, RDW 12.8, Plt Count 273, MPV 8.0, Neut % (Auto) 64.4, Lymph % (Auto) 21.6, [place] % (Auto) 9.3, Eos % (Auto) 2.8, Baso % (Auto) 1.8, Neut # (Auto) 5.1, Lymph # (Auto) 1.7, [place] # (Auto) 0.8, Eos # (Auto) 0.2, Baso # (Auto) 0.1 11/07/21 06:15: Sodium 140, Potassium 3.5, Chloride 108 H, Carbon Dioxide 27, Anion Gap 8.5, BUN 4 L D, Creatinine 0.50 L, Estimated Creat Clear 66, Estimated GFR 125, Est GFR ( Amer) 151, Glucose 122 H, Calcium 9.0, Total Bilirubin 0.4, AST 68 H D, ALT 133 H, Alkaline Phosphatase 89, Total Protein 6.8, Albumin 3.7, Globulin 3.1, Albumin/Globulin Ratio 1.2 I & O for Last 24 hours: Intake & Output 11/04/21 11/05/21 11/06/21 11/07/21 23:59 23:59 23:59 23:59 Intake Total 1912 830 / 830 Balance 1912 830 / 830 Weight 159 lb 8 oz 159 lb 14.773
--- NOTE | 2021-11-09 23:11 | HMH.DCSUM ---
General - General Admission date:: 11/05/21 Discharge date: 11/07/21 HPI HPI: Ms. Hatch is a 61-year-old female who presented to the office of [facility] today with left lower quadrant pain rated an 8 out of 10 on the pain scale. She states this pain began a little over a week ago and has gotten worse. In the last few days she has run a fever and had chills. She states she has been unable to have a bowel movement the past few days and feels very bloated. She has not been eating or drinking. On her previous colonoscopy, she did have diverticulosis and she is scheduled for another colonoscopy on 12/24/2021. She has not noticed any blood in her stool. She is extremely weak and can barely walk. Evaluation in the office showed a white blood cell count of 16.1. She did have some 1+ leukocytes and trace blood in her urine and this was cultured. It was felt she had a diverticulitis and was admitted for IV antibiotics and a CT scan. Hospital Course Hospital Course: Patient was admitted for IV fluids, IV antibiotics, pain control, and antiemetics. A CT was ordered of the abdomen to rule out diverticulitis. The CT did show acute diverticulitis of the sigmoid colon. The patient improved on the IV antibiotics. She was able to have a few bowel movements and her pain improved. She was started on a clear liquid diet. Her white blood cell count normalized. Her liver function tests improved. She was able to tolerate her diet and wanted to go home. She was discharged on oral antibiotics and will follow-up in the office in 10 days. Objective Vital signs: Temp Pulse Resp BP Pulse Ox 97.8 F 64 16 115/74 98 11/07/21 08:00 11/07/21 08:00 11/07/21 08:00 11/07/21 08:00 11/07/21 08:00 Narrative: - Constitutional Comments: Does not appear to feel well <Sharmin Ellison 11/05/21 17:10> - *Routine HEENT Exam Head: Present: normocephalic <Sharmin Ellison 11/05/21 17:10> Eye: Present: EOMI, PERRL <Sharmin Ellison 11/05/21 17:10> ENT: Present: mucous membranes dry <Sharmin Ellison - 11/05/21 17:10> - *Routine Neck Exam Present: supple. Absent: lymphadenopathy <[facility] 11/05/21 17:10> - *Routine Respiratory Exam Present: CTA bilaterally [facility] 11/05/21 17:10> - *Routine Cardiovascular Exam Present: RRR [facility] 11/05/21 17:10> - *Routine Abdominal Exam Present: soft, normoactive bowel sounds, tenderness (LLQ with guarding) <[facility] 11/05/21 17:10> - *Routine Rectal Exam Rectal:: deferred <[facility] 11/05/21 17:10> - *Routine Genitalia Exam Genitalia:: deferred <[facility] 11/05/21 17:10> - *Routine Extremities Exam Absent: cyanosis, clubbing, edema <[facility] 11/05/21 17:10> - *Routine Skin Exam Present: warm. Absent: rash <[facility] 11/05/21 17:10> - *Routine Neurological Exam Present: alert, oriented X3 Results Labs on day of discharge: Preliminary micro results at discharge 11/05/21 17:20 Blood Culture - Preliminary Blood NO GROWTH AFTER 48 HOURS 11/05/21 17:20 Blood Culture - Preliminary Blood NO GROWTH AFTER 48 HOURS DS: Diagnosis - Discharge Diagnosis (1) Diverticulitis Status: Acute (2) Left lower quadrant pain Status: Acute (3) Leukocytosis Status: Acute (4) Hypertension Status: Chronic (5) Hypothyroidism Status: Acute Discharge Plan - Patient Discharge Instructions ACTIVITY: Continue current activity DIET: advance to your usual diet Patient Instructions: DI for Diverticulitis, DI for Abdominal Pain-Adult Forms: [facility] Work Release - Follow up Plan Follow up with: Michael Perdomo MD [Primary Care Provider] - 11/20/21 10:45 am Disposition: Home, Self-Care Condition at discharge:: Improved Home Medications: Home Medications Medication Instructions Recorded Confirmed Type Meloxicam 15 mg PO DAILY 08/05/17 11/05/21 History lynn
--- NOTE | 2021-11-10 16:42 | CARE MANAGER ---
Patient returned phone call. Discussed discharge from hospital. Patient states that she is doing well. She denies any questions or concerns. She states that she is taking medication as directed and is aware of follow up appointment day and time. OSCAR Ariza
== END 2021-11-07 10:23 | disposition home or self-care (01) | DRG 392 ==
PROVIDERS: Physician Assistant; Admitting Provider Family Medicine; PCP Family Medicine; Referring Provider Family Medicine; Visit Provider Family Medicine
DX: K57.32 Diverticulitis of large intestine without perforation or abscess without bleeding (principal); I10 Essential (primary) hypertension; E03.9 Hypothyroidism, unspecified
CPT/HCPCS: 36415; 74177; 80053; 83605; 85025; 87040; C9803; G0378; J1956; Q9967; U0003; U0005

== ENCOUNTER → 2022-04-29 07:20 | Outpatient (CLI) | payer BC, OTHER, SELFPAY ==
[2022-04-29 10:12] LABS: Alanine Aminotransferase 56 U/L (12-78); Albumin Level 4.1 g/dl (3.5-5.0); Albumin/Globulin Ratio 1.4 (1.1-1.8); Alkaline Phosphatase 92 U/L (38-126); Anion Gap 12.2 mEq/L (5-15); Aspartate Amino Transferase 37 U/L (14-36); Bilirubin,Total 0.5 mg/dl (0.2-1.3); Blood Urea Nitrogen 17 mg/dl (7-17); Calcium 9.5 mg/dl (8.4-10.2); Carbon Dioxide 27 mmol/L (22.0-30.0); Chloride 106 mmol/L (98-107); Estimated Glomerular Filt Rate 101 ml/min (>60); GFR (African American) 123 ML/MIN (>60); Globulin 2.9 g/dL (1.3-3.2); Glucose 88 mg/dl (74-100); Potassium 4.2 mmoL/L (3.5-5.1); Sodium 141 mmol/L (136-145)
[2022-04-29 10:31] LABS: 25-OH Vitamin D, Total 38.2 ng/mL (30-100)
[2022-04-29 11:19] LABS: Vitamin B12 841 pg/mL (239-931)
[2022-04-29 11:20] LABS: Folate > 20.00 ng/mL
== END ==
PROVIDERS: PCP Family Medicine; Visit Provider Psychiatry & Neurology Neurology
DX: G62.9 Polyneuropathy, unspecified (principal); G60.9 Hereditary and idiopathic neuropathy, unspecified; R53.83 Other fatigue; E55.9 Vitamin D deficiency, unspecified
CPT/HCPCS: 36415; 80053; 82306; 82607; 82746

== ENCOUNTER 2024-01-29 17:57 | Emergency (ER) | payer BC, OTHER, SELFPAY ==
[2024-01-29 17:58] VITALS: BP 176/108; PULSE 90; RESP 18; TEMP 36.6; O2SAT 99; BMI 27.4
[2024-01-29] MEDS: OXYMETAZOLINE NASAL SPRAY 0.05% 15ML 15 ML NS (18:03)
[2024-01-29 18:04] VITALS: BP 179/87; PULSE 82; RESP 19; O2SAT 98
--- NOTE | 2024-01-29 18:08 | ED_ITS ---
Discharge Plan Disposition Patient Disposition: Home, Self-Care Condition: Good Prescriptions Prescriptions: No Action gabapentin [Gralise] 600 mg tablet extended release 24 hr 1,200 mg PO HS meloxicam 15 tablet 15 mg PO DAILY Patient Comments: levothyroxine 25 MCG capsule 25 mcg PO DAILY metronidazole 500 MG tablet 500 mg PO TID Qty: 21 0RF levofloxacin 500 MG tablet 500 mg PO DAILY Qty: 7 0RF tizanidine 4 MG tablet 2 - 4 mg PO HS Patient Comments: TAKE 1/2 TO 1 TABLET BY MOUTH EVERY NIGHT AT BEDTIME FOR MUSCLE SPASMS Referrals Follow up/Referrals: Julius Macias MD [Physician] - See instructions Michael Perdomo MD [Primary Care Provider] - See instructions Jorge Alberto Gao MD [Physician] - See instructions Andrey Beatty III, MD [Staff Physician] - See instructions Geneva Infante APRN [Nurse Practitioner] - See instructions Activity Restrictions/Add. Instructions Additional Instructions/Restrictions: You were evaluated in the emergency department today. Please follow-up with ENT. I recommend scheduling appoint with them on Wednesday. Also follow-up close with your primary care provider. Keep an eye on your blood pressure at home. Try the Afrin and nasal clamp at home if you have recurrence of bleeding. Avoid blowing your nose. Return to the emergency department right away for new or worsening symptoms Clinical Impressions Clinical Impression: Epistaxis, High blood pressure Instructions Patient Instructions: DI for Nosebleed Print Language Print Language: Egyptian Discharge ED Provider: Suzanna Hernandez General Adult HPI General Chief complaint: Epistaxis Stated complaint: nose bleed coming out eyes Time Seen by Provider: 01/29/24 18:00 Mode of Arrival: Ambulatory Source of Information: Patient Limitations: No Limitations Description of Symptoms (Recalled from ER Triage Doc. by RN): Reports nose bleeds on and off for 2 months. Her nose started bleeding again approx 45 minutes ago and she became worried when blood started to come from her eye socket. Denies blood thinner use or any truama to her face. History of Present Illness HPI narrative: This patient is a 63-year-old female with a history of hypertension not currently on medication because she notes her blood pressure been doing well and hypothyroidism presenting to the emergency department for evaluation with concern for nosebleed. According to the patient, she has been having nosebleeds on and off for the last 2 months, but the last couple days it has been worse. She had bleeding that started again about 45 minutes ago and blood started coming from the corner of her right eye. Given this, she came right away for further evaluation and management. She notes that she often gets headaches with these nosebleeds. She denies any recent URI symptoms, nasal congestion, or other concerns. She does not take any blood thinners or aspirin. She denies any trauma to the face. No other concerns noted at this time Related Data Home Medications ?Medication ?Instructions ?Recorded ?Confirmed meloxicam 15 mg tablet 15 mg PO DAILY Pain 08/05/17 11/05/21 gabapentin 600 mg tablet,extended 1,200 mg PO HS Pain 09/23/17 11/06/21 release 24 hr (Gralise) tizanidine 4 mg tablet 2 - 4 mg PO HS MUSCLE SPASM 05/31/21 11/06/21 levothyroxine 25 mcg capsule 25 mcg PO DAILY THYROID 11/05/21 11/05/21 Previous Rx's ?Medication ?Instructions ?Recorded levofloxacin 500 mg tablet 500 mg PO DAILY #7 tabs 11/07/21 metronidazole 500 mg tablet 500 mg PO TID #21 tabs 11/07/21 Allergies Allergy/AdvReac Type Severity Reaction Status Date / Time amoxicillin [From AUGMENTIN] Allergy Unknown Verified 04/22/19 13:37 codeine [CODEINE] Allergy Unknown Verified 04/22/19 13:37 clavulanic acid AdvReac Unknown Verified 05/31/21 11:01 [From AUGMENTIN] [facility] Disclaimer: The information contained in this section may have been updated after the patient was seen, as this information can be updated by other users. Social History Smoking Status: Unknown if ever smoked alcohol intake: never substance use type: denies use current occupational status: employed and retired Travel in the last 8 weeks: None household members: spouse housing: house caffeine: No ROS Obtained: Yes All systems reviewed & no additional complaints except as documented Physical Exam General General appearance: alert and in no apparent distress Head Head exam: atraumatic and normocephalic Eye Eye exam: Present normal appearance, PERRL and EOMI ENT ENT exam: Present normal oropharynx, mucous membranes moist, normal external ear exam and other (Epistaxis from R nostril) Neck Neck exam: Present normal inspection, full ROM and trachea midline; Absent tenderness Chest Chest inspection: Present normal inspection and symmetric chest wall rise; Absent tenderness Respiratory Respiratory exam: Present normal lung sounds bilaterally; Absent respiratory distress, wheezes, stridor or accessory muscle use Cardiovascular Cardiovascular exam: Present regular rate and normal rhythm Abdominal Exam Abdominal exam: Present soft; Absent distention, tenderness or guarding Extremities Exam Extremities exam: Present normal inspection, full ROM and normal capillary refill; Absent tenderness or edema Back Exam Back exam: Present normal inspection and full ROM; Absent tenderness Neurological Exam Neurological exam: Present alert, oriented X3, CN II-XII intact and normal gait; Absent motor sensory deficit Psychiatric Psychiatric exam: Present normal affect and normal mood Skin Skin exam: Present warm and dry Medical Decision Making Medical Records Medical records reviewed: Yes I reviewed the patient's medical records. Elijah Inquiry Pt receiving controlled substance: No Vital Signs: 01/29/24 17:58 01/29/24 18:04 01/29/24 18:30 Temperature 97.9 F Temperature Source Oral Pulse Rate 82 68 Pulse Rate [Radial] 90 Respiratory Rate 18 19 18 Blood Pressure 179/87 H 156/91 H Blood Pressure [Right Arm] 176/108 H Blood Pressure Mean 119 112 Blood Pressure Mean [Right Arm] 130 Blood Pressure Source [Right Arm] Automatic Cuff Blood Pressure Position [Right Arm] Sitting 02 Sat by Pulse Oximetry 99 98 96 Oxygen Delivery Method Room Air 01/29/24 19:31 Temperature 98 F Temperature Source Pulse Rate 69 Pulse Rate [Radial] Respiratory Rate 20 Blood Pressure 162/93 H Blood Pressure [Right Arm] Blood Pressure Mean Blood Pressure Mean [Right Arm] Blood Pressure Source [Right Arm] Blood Pressure Position [Right Arm] 02 Sat by Pulse Oximetry Oxygen Delivery Method Room Air Lab Data Lab results reviewed: Yes I reviewed the patient's lab results. Orders (Tests/Meds): ED MEDICATIONS Discontinued Medications Generic Name Dose Route Start Last Admin Trade Name Freq PRN Reason Stop Dose Admin Oxymetazoline HCl 15 ml 01/29/24 18:00 01/29/24 18:03 Oxymetazoline Nasal [place] 0.05% 15ml NS 01/29/24 18:01 15 ml ONCE ONE Administration Medical Decision Narrative: In summary, this patient is a 63-year-old female presenting to the Emergency Department for evaluation of epistaxis. Differential diagnoses considered include but are not limited to anterior nosebleed, posterior nosebleed, nasal polyps. Ruling out the most morbid conditions drove assessment. It should be noted patient's history includes hypertension which is not at goal therapy. This complicates all aspects of care by increasing patient's risk for morbidity. On exam, the patient is well-appearing. She is hypertensive with systolics in the 160s to 170s with epistaxis from the right nose, but otherwise vitals are normal. She has bleeding from the right nose that is very slow on exam. No evidence of bleeding/bruising otherwise. Patient was advised to blow out the clot out of her nose, then aspirate Afrin in both nostrils and applied a nasal clamp. Will reassess to see if this stops the bleeding. On multiple subsequent reassessments, the patient is resting comfortably with no recurrence of epistaxis. Given this, I feel that she is appropriate for discharge home with close follow-up with ENT as well as with her primary care provider for reassessment of her blood pressure. Strict return precautions were given and she was discharged after all questions were answered. Critical Care Critical Care Time Critical Care Time: No
--- NOTE | 2024-01-29 18:27 | PC.NURSE ---
DR CAVAZOS AT BEDSIDE TO REEVALUATE PT
[2024-01-29 18:30] VITALS: BP 156/91; PULSE 68; RESP 18; O2SAT 96
[2024-01-29 19:31] VITALS: BP 162/93; PULSE 69; RESP 20; TEMP 36.6; O2SAT 95
== END 2024-01-29 19:32 | disposition home or self-care (01) ==
PROVIDERS: Emergency Provider Emergency Medicine; PCP Family Medicine
DX: R04.0 Epistaxis (principal); I10 Essential (primary) hypertension; E03.9 Hypothyroidism, unspecified; H11.31 Conjunctival hemorrhage, right eye
CPT/HCPCS: 99283

== ENCOUNTER 2024-12-22 10:48 | Outpatient (CLI) | payer MEDICARE, OTHER, SELFPAY ==
--- OUTSIDE RECORDS SUMMARY | 2019-12-12 11:12 | XMS_ITS | Encounter Summary ---
Author Organization [facility] Address [address] [place] [address] Care Team Providers Care Laydown Machine Operator Name Role Phone Michael Perdomo MD Primary Care Provider [phone] Reason for Referral * Diagnostic Imaging (Routine) - Closed Specialty Diagnoses / Procedures Referred By Contac t Referred To Contact Radiology Diagnoses Postmenopausal bleeding Procedures US Non-ob Transvaginal Cindy German MD [address] [place] [address] Phone: tel: fax: [facility] Phone: tel: Referral ID Status Reason Start Date Expiration Date Visits Re quested Visits Authorized [id number] Closed 12/07/2019 12/06/2020 1 1 Reason for Visit * Diagnostic Imaging (Routine) - Closed Specialty Diagnoses / Procedures Referred By Contac t Referred To Contact Radiology Diagnoses Postmenopausal bleeding Procedures US Non-ob Transvaginal Cindy German MD [address] [place] [address] Phone: tel: fax: [facility] Phone: tel: Referral ID Status Reason Start Date Expiration Date Visits Re quested Visits Authorized [id number] Closed 12/07/2019 12/06/2020 1 1 Encounter Details Date Type Department Care Team (Latest Contact Info) Description 12/12/2019 11:12 AM EDT Hospital Encounter [facility] [phone] Postmenopausal bleeding Social History Tobacco Use Types Packs/Day Years Used Date Smoking Tobacco: Never Smokeless Tobacco: Never Alcohol Use Standard Drinks/Week Comments No 0 (1 standard drink = 0.6 oz pur e alcohol) Comments No Sex and Gender Information Value Date Recorded Sex Assigned at Not on file Legal Sex Female 10:03 AM EDT Gender Identity Not on file Sexual Orientation Not on file documented as of this encounter Plan of Treatment Upcoming Encounters Date Type Department Care Team (Late st Contact Info) Description 09/20/2025 9:30 AM EDT Office Visit [facility] O[facility]YN [address] [facility] [address] [place] [address] Cindy German MD [address] [facility] [address] [place] [address] documented as of this encounter Procedures Procedure Name Priority Date/Time Associated Diagnosis Comments US NON-OB TRANSVAGINAL Routine 12/12/2019 11:56 AM EDT Postmenopausal bleeding documented in this encounter Results * US Non-ob Transvaginal (12/12/2019 11:56 AM EDT) Anatomical Region Laterality Modality Body Ultrasound 12/12/2019 12:4 5 PM EDT Narrative 12/12/2019 12:28 PM EDT PAT NAME: ALIYAH HATCH MED REC#: [id number] DA: [id number] PAT GEND: F PAT TYPE: O EXAM DELISA: [id number] REF PHYS CINDY GERMAN Indication ======== Post Menopausal Bleeding History ====== Previous Outcomes 2 Para 2 Method ======= Voluson E6, Transvaginal ultrasound examination, Color Doppler flow performed, 3D ultrasound examination. View: Adequate view Uterus ====== Uterus: Normal Uterus position: Anteverted Myometrium: Homogeneous Endometrium: Uniform Cervix details: Normal Uterus long 41 mm Uterus ap 21 mm Uterus tr 32 mm Uterus Vol 14.6 cm Endometrial thickness, total 2.2 mm Cervical length 18.3 mm Right Ovary Rt ovary: Normal Rt ovary D1 23.2 mm Rt ovary D2 16.0 mm Rt ovary D3 9.5 mm Rt ovary Vol 1.8 cm Left Ovary ========= Lt ovary: Normal Lt ovary D1 19.1 mm Lt ovary D2 16.8 mm Lt ovary D3 11.00 mm Lt ovary Vol 1.8 cm Cul de Sac ========= Normal Impression ========= Thin, uniform endometrial stripe. Significant endometrial pathology is unlikely Recommendation Follow-up as clinically indicated. Jalousies Installer: Lori Davis RDMS Physician: Libby Schwarz MD Electronically signed by: Libby Schwarz MD at: 12:28 Procedure Note Libby Schwarz MD - 12/12/2019 PAT NAME: ALIYAH HATCH MED REC#: [id number] DA: [id number] PAT GEND: F PAT TYPE: O EXAM DELISA: [id number] REF PHYS ESTEFANI GERMANLEY Indication ======== Post Menopausal Bleeding History ====== Previous Outcomes Gravida2 Para2 Method ======= Volus[place] E6, Transvaginal ultrasound examination, Color Doppler flowperformed, 3D ultrasound examination. View: Adequate view Uterus ====== Uterus:Normal Uterus position:Anteverted Myometrium:Homogeneous Endometrium:Uniform Cervix details:Normal Uterus long41 mm Uterus ap21 mm Uterus tr32 mm Uterus Vol14.6 cm Endometrial thickness, total2.2 mm Cervical .3 mm Right Ovary Rt ovary:Normal Rt ovary D123.2 mm Rt ovary D216.0 mm Rt ovary D39.5 mm Rt ovary Vol1.8 cm Left Ovary ========= Lt ovary:Normal Lt ovary D119.1 mm Lt ovary D216.8 mm Lt ovary D311.00 mm Lt ovary Vol1.8 cm Cul de Sac ========= Normal Impression ========= Thin, uniform endometrial stripe. Significant endometrial pathology isunlikely Recommendation Follow-up as clinically indicated. Jalousies Installer: Lori Davis RDMS Physician: Libby Schwarz MD Electronically signed by: Libby Schwarz MD at: 12:28 us Cindy German MD IMG US ORDERABLES Final Re sult documented in this encounter Visit Diagnoses Diagnosis Postmenopausal bleeding documented in this encounter Additional Health Concerns Infection Onset Date Last Indicated Resolved Time COVID Screen (preop/placement) 12/31/2019 12/31/2019 01/01/2020 11:43 AM EDT documented as of this encounter Care Teams Laydown Machine Operator Relationship Specialty Start Date End Date Michael Perdomo MD [address] [facility] [address] [place] [address] PCP - General 06/05/15 02/18/22 documented as of this encounter
--- OUTSIDE RECORDS SUMMARY | 2024-07-31 05:30 | XMS_ITS ---
[facility] [address] [place] [id number] Care Team Providers Care Laborer Laboratory Name Role Phone Michael Perdomo Primary Care Provider Allergies Allergen (clinical drug ingredient) Drug/Non Drug Allergy documented on EMR Reaction Allergy Type Onset Date Status amoxicillin / clavulanate Augmentin stomach upset Drug Allergy Active codeine Codeine stomach upset Drug Allergy Act gary Results Component Value Reference Range Notes P-Comprehensive Metabolic Pa [place] (CMP) Reviewed date:08/02/2024 12:19:07 PM Interpretation:Normal Performing Lab: Notes/Report: Test performed by [facility] [address] [place] [address] , [address], [place] [address] Osmany Calix MD, Wired [employer] CLIA: [id number] Sodium 142 135-145 mmol/L Potassium 4.8 3.5-5.3 mmol/L Chloride 103 97-108 mmol/L CO2 28 22-32 mmol/L Glucose 94 65-99 mg/dL BUN 9 8-23 mg/dL Creatinine 0.67 0.50-1.00 mg/dL Calcium 10.3 8.6-10.4 mg/dL eGFR by Creatinine 97 >59 mL/min/1.73m2 Protein 7.6 6.0-8.3 g/dL Albumin 4.7 3.5-5.3 g/dL Alkaline Phosphatase 75 35-121 IU/L ALT (SGPT) 42 <5-47 IU/L AST (SGOT) 23 <5-40 IU/L Bilirubin, Total 0.5 <0.2-1.2 mg/dL A/G Ratio 1.6 1.1-2.5 P-T4 Free (thyroxine) Reviewed date:08/02/2024 12:19:06 PM Interpretation:Normal Performing Lab: Notes/Report: Test performed by [facility] [address] [place] [address] [place] [address] Osmany Calix MD, Wired [employer] CLIA: [id number] Thyroxine Free (free T4) 1.00 0.86-1.76 ng/dL P-Lipid Panel Reviewed date:08/02/2024 12:19:07 PM Interpretation:satisfactory Performing Lab: Notes/Report: Test performed by [facility] [address] [place] [address] Osmany Calix MD, Wired Swe[employer] CLIA: [id number] Cholesterol 186 <200 mg/dL Triglycerides 127 <150 mg/dL HDL Cholesterol 56 >39 mg/dL Cholesterol / HDL Ratio 3.32 0.00-4.44 Ratio Non-HDL Cholesterol 130 <130 mg/dL LDL Cholesterol (Calculation) 105 <130 mg/dL LDL Cholesterol Levels* Less than 100 mg/dL Optimal 100 to 129 mg/dL Near Optimal/ Above Optimal 130 to 159 mg/dL Borderline High 160 to 189 mg/dL High 190 mg/dL and above Very High * Categories as recommended by the 2004 ATPIII guidelines LDL/HDL Ratio 1.9 <3.3 Ratio LDL Cholesterol Patient History Test Date: 08/24/2023 LDL Results: 96 Units: mg/dL % Change: - Test Date: 07/31/2024 LDL Results: 105 Units: mg/dL % Change: +9% P-TSH Reviewed date:08/02/2024 12:19:07 PM Interpretation:Normal Performing Lab: Notes/Report: Test performed by [facility] [address] [place] [address] , [facility] [address], [place] [address] Osmany Calix MD, Wired [employer] CLIA: [id number] TSH 4.02 0.43-5.25 mU/L REASON FOR VISIT 6 month check Medications Medication SIG (Take, Route, Frequency, Duration) Notes Start Date End Date Status Levothyroxine Sodium 25 MCG 1 tab(s) ora lly once a day Active Meloxicam 15 MG 1 tab(s) orally once a day Active Nurtec 75 MG 1 tablet on the tong ue and allow to dissolve Orally 07/09/2023 Active Vitamin D3 25 MCG (1000 UT) 1 tab(s) ora lly once a day; Duration: 30 day(s) Active Gralise 600 MG 2 tab(s) orally qhs Active B-12 1000 MCG 1 tab(s) orally once a day; Duration: 30 day(s) Active tiZANidine HCl 4 MG 1 tab(s) orally once daily Active Vital Signs Blood pressure systolic 124 mm Hg 08/01/19 25 Blood pressure diastolic 72 mm Hg 025 Heart Rate 67 /min 07/31/2024 Height 64.25 in 07/31/2024 Weight 165.2 lbs 07/31/2024 BMI 28.13 kg/m2 07/31/2024 Encounters Encounter Location Date Provider Diagnosis [facility] [address] [facility] [address] [place] [id number] 07/31/2024 Michael Perdomo Acquired hypothyroid ism E03.9 ; Pure hypercholesterolemia E78.00 ; Hypertriglyceridemia E78.1 ; Gastroesophageal reflux disease, esophagitis presence not specified K21.9 and Right-sided low back pain with right-sided sciatica, unspecified chronicity M54.41 Assessments Encounter Date Diagnosis (ICD Code) Assessment Notes Treatment Notes Treatment Clinical Notes Section Notes 07/31/2024 Acquired hypothyroid ism (ICD-10 - E03.9) 07/31/2024 Pure hypercholesterolemia (ICD-10 - E78.00) 07/31/2024 Hypertriglyceridemia (ICD-10 - E78.1) 07/31/2024 Gastroesophageal ref lux disease, esophagitis presence not specified (ICD-10 - K21.9) 07/31/2024 Right-sided low back pain with right-sided sciatica, unspecified chronicity (ICD-10 - M54.41) Plan Of Treatment Medication Medication Name Sig Start Date Stop Date Notes Levothyroxine Sodium 25 MCG 1 tab(s) orally once a day Meloxicam 15 MG 1 tab(s) orally once a day Next Appt Details Follow Up: 6 Months, Reason: Provider Name:Michael jernigan, 12/22/2024 10:00:00 AM, [address] [facility], [address], [place], [phone], Provider Name:Michael jernigan, 01/31/2025 09:15:00 AM, [address] [facility], [facility] [address], [place], [phone], Progress Notes * BRIDGET MARTINEZOB:1960 (64 yo F)Acc No.[id number]:07/31/2024 Progress Notes Patient: ALIYAH DENT Provider: Nicole Perdomo M.D. :1960 A ge:63 Y S ex:Female Date:07/31/2024 Address:[address] [place] [address], [id number] Subjective: * Chief Complaints: * 1 . 6 month check. * HPI: C ardiology: 63 year old female presents with c/o Blood Pressure Elevated?Pt here for 6 mo f/u on hypertension, states she is doing well and does not have any concerns.? c/o Hyperlipidemia P t is fasting today. * ROS: D ERMATOLOGY: no R zandra. n o H crista. G ASTROENTEROLOGY: no N ausea. n o V omiting. U ROLOGY: no D ifficulty urinating. n o B lood in urine. * Medical History: H ypertension, Hyperlipidemia, Peripheral Neuropathy, Arthritis, Low Back Pain, Degenerative Disc Disease, Esophageal Reflux, Hiatal Hernia, Esophageal Spasms, Hearing Loss, Carpal Tunnel Syndrome, [employer] - Dr. Fabian, Colon Cancer, Family Hx, Colon Polyps, Diverticulitis, 10/2021. * Surgical History: C holecystectomy 2005, Colonoscopy 2013, 2018, Partial Hysterectomy and Bladder Surgery 12/2019, Colpoperineoohapy w/ Dr Rai 01/02/2020, RT Carpal Tunnel Release 01/2023, LT Carpal Tunnel Release 02/2023. * Hospitalization/Major Diagno stic Procedure: V ertigo, UTI, Hypokalemia- [facility] ER 07/04/2018. * Family History: F ather: , diagnosed with Diabetes, Heart Disease. M other: , diagnosed with Diabetes, Cancer. 3 brother(s) , 3 sister(s) . 2 daughter(s) . . Asthma also runs on her father's side of the family. * Social History: C URRENT TOBACCO USE S moking Status: P atient does NOT smoke. C affeine: no, frequency:. Exercise: yes, 2-3 times weekly. Home smoke detector use: no. * Medications: T aking Gralise 600 MG Tablet 2 tab(s) orally qhs , Taking tiZANidine HCl 4 MG Tablet 1 tab(s) orally once daily , Taking B-12 1000 MCG Tablet 1 tab(s) orally once a day , Taking Vitamin D3 25 MCG (1000 UT) Tablet 1 tab(s) orally once a day , Taking Nurtec 75 MG Tablet Disintegrating 1 tablet on the tongue and allow to dissolve Orally , Taking Levothyroxine Sodium 25 MCG Tablet 1 tab(s) orally once a day , Taking Meloxicam 15 MG Tablet 1 tab(s) orally once a day , Discontinued Cephalexin 500 MG Capsule 1 capsule Orally every 12 hrs , Medication List reviewed and reconciled with the patient * Allergies: C odeine: stomach upset - Allergy, Augmentin: stomach upset - Allergy. Objective: * Vitals: W t:165.2, Temp:97.9, BP:124/72, HR:67, Nurse:samantha, Ht: 64.25, BMI:28.13. * Examination: G eneral Examination: General Appearance: N AD. H EENT: u nremarkable.?Heart: R SR. L ungs: c lear to auscultation. S kin: n ormal, no rash. P eripheral pulses: n ormal (2+) bilaterally. E xtremities: n o leg edema. Assessment: * Assessment: 1. A cquired hypothyroidism - E03.9 (Primary) 2 . P ure hypercholesterolemia - E78.00 3 . H ypertriglyceridemia - E78.1 4 . G astroesophageal reflux disease, esophagitis presence not specified - K21.9 5 . R ight-sided low back pain with right-sided sciatica, unspecified chronicity - M54.41 Plan: * Treatment: Value Reference Range T hyroxine Free (free T4) 1.00 0.86-1.76 - ng/d L * Lara Infante 08/02/2024 12:18:5 1 PM > Pt informed ?LAB: P-TSH (Collection Date & Time - 07/31/2024 09:30 AM)?Normal* Value Reference Range T SH 4.02 0.43-5.25 - mU/L * Lara Infante 08/02/2024 12:18:5 1 PM > Pt informed 2.?Pure hypercholesterolemia?LAB: P-Comprehensive Metabolic Panel (CMP) (Collection Date & Time - 07/31/2024 09:30 AM)?Normal* Value Reference Range A /G Ratio 1.6 1.1-2.5 - * A lbumin 4.7 3.5-5.3 - g/dL * A lkaline Phosphatase 75 35-121 - IU/L * A LT (SGPT) 42 <5-47 - IU/L * A ST (SGOT) 23 <5-40 - IU/L * B ilirubin, Total 0.5 <0.2-1.2 - mg/dL * B UN 9 8-23 - mg/dL * C alcium 10.3 8.6-10.4 - mg/dL * C hloride 103 97-108 - mmol/L * C O2 28 22-32 - mmol/L * C reatinine 0.67 0.50-1.00 - mg/dL * G lucose 94 65-99 - mg/dL * P otassium 4.8 3.5-5.3 - mmol/L * S odium 142 135-145 - mmol/L * P rotein 7.6 6.0-8.3 - g/dL * e GFR by Creatinine 97 >59 - mL/min/1.73m2 * Lara Infante 08/02/2024 12:18:5 1 PM > Pt informed ?LAB: P-Lipid Panel (Collection Date & Time - 07/31/2024 09:30 AM)? satisfactory* Value Reference Range C holesterol / HDL Ratio 3.32 0.00-4.44 - Ratio * C holesterol 186 <200 - mg/dL * H DL Cholesterol 56 >39 - mg/dL * L DL Cholesterol (Calculation) 105 <130 - mg/d L * L DL/HDL Ratio 1.9 <3.3 - Ratio * N on-HDL Cholesterol 130 H <130 - mg/dL * T riglycerides 127 <150 - mg/dL * Lara Infante 08/02/2024 12:18:5 1 PM > Pt informed 3.?Right-sided low back pain with right-sided sciatica, unspecified chronicity? Continue Meloxicam Tablet, 15 MG, 1 tab(s), orally, once a day.?? * Procedure Codes: G 2211 Complex e/m visit add on, 3074F SYST BP LT 130 MM HG, 3078F DIAST BP < 80 MM HG * Follow Up: 6 Months * Images: Billing Information: * Visit Code: 51227 Office Visit, Est Pt., Level 4. * Procedure Codes: G2211 Complex e/m visit add on. 3074F SYST BP LT 130 MM HG. 3078F DIAST BP < 80 MM HG. * Electronic signature of Sydney Perdomo MD on 12/22/2024 at 10:53 AM EDT Sign off status: Pending * Provider: Nicole Perdomo M.D. Date: 07/31/2024 Generated for Farideh callahan/Harshad/eTransmitting on: 0 12/22/2024 10:53 AM EDT History and Physical Notes * HPI (History of Present Illness) Category Sub-Category Detail Notes Category Not es Cardiology Blood Pressure Elevated Pt here for 6 mo f/u on hypertension, states she is doing well and does not have any concerns Hyperlipidemia Pt is fasting today Examination Category Sub-Category Detail Notes Category Not es General Examination HEENT: unremarkable Heart: RSR Lungs: clear to auscultatio n Extremities: no leg edema General Appearance: NAD Skin: normal, no rash Peripheral pulses: normal (2+) bilatera lly
--- OUTSIDE RECORDS SUMMARY | 2024-10-11 04:45 | XMS_ITS ---
Author Organization [facility] [address] [facility] [address] [place] [id number] Care Team Providers Care [employer] Name Role Phone Michael Perdomo Primary Care Provider [phone] Allergies Allergen (clinical drug ingredient) Drug/Non Drug Allergy documented on EMR Reaction Allergy Type Onset Date Status amoxicillin / clavulanate Augmentin stomach upset Drug Allergy Active codeine Codeine stomach upset Drug Allergy Act gary Results Component Value Reference Range Notes Urinalysis - Inhouse Reviewed date:10/11/2024 12:12:08 PM Interpretation: Performing Lab: Notes/Report: Color/Clarity yellow/clear Leuk Trace Nitrite Neg Urobili 3.2 Protein Neg pH 6.0 Blood Neg Sp. Gr. <1.005 Ketone Neg Bili Neg Gluc Neg CBC Fingerstick (in house) Reviewed date:10/11/2024 12:12:15 PM Interpretation: Performing Lab: Notes/Report: wbc 5.4 3.5 - 10 lym 30.6% 15 - 50 mid 6.2% 2 - 15 gran 63.2% 35 - 80 rbc 4.96 3.5 - 5.5 hgb 15.1 11.5 - 16.5 hct 45.8 35 - 55 mcv 92.2 75 - 100 mch 30.4 25 - 35 mchc 32.9 31 - 38 plat 214 100 - 400 P-Culture, Urine Reviewed date:10/13/2024 12:22:06 PM Interpretation:No growth Performing Lab: Notes/Report: Test performed by [employer] [employer] [address] [place] [address] , [address], [place] [address] Osmany Calix MD, Director Of Vocational Guidance IA: [id number] Specimen Source Urine - Void Culture, Urine See Below Final Report : No growth REASON FOR VISIT diverticulitis flare up Medications Medication SIG (Take, Route, Frequency, Duration) Notes Start Date End Date Status Vitamin D3 25 MCG (1000 UT) 1 tab(s) ora lly once a day; Duration: 30 day(s) Active B-12 1000 MCG 1 tab(s) orally once a day; Duration: 30 day(s) Active Meloxicam 15 MG 1 tab(s) orally once a day Active Nurtec 75 MG 1 tablet on the tong ue and allow to dissolve Orally 07/09/2023 Active Levothyroxine Sodium 25 MCG 1 tab(s) ora lly once a day; Duration: 90 days Active Macrobid 100 MG 1 capsule with food Orally every 12 hrs; Duration: 5 days 10/11/2024 Active Scopolamine 1 MG/3DAYS 1 patch to skin b ehind the ear as needed Transdermal every 72 hours as needed 10/11/2024 Active tiZANidine HCl 4 MG 1 tab(s) orally once daily Active Gralise 600 MG 2 tab(s) orally qhs Active Vital Signs Blood pressure systolic 120 mm Hg 10/12/19 25 Blood pressure diastolic 88 mm Hg 025 Heart Rate 79 /min 10/11/2024 Height 64.25 in 10/11/2024 Weight 163.0 lbs 10/11/2024 BMI 27.76 kg/m2 10/11/2024 Encounters Encounter Location Date Provider Diagnosis [facility] [facility] [address] [place] [address], [place] [id number] 10/11/2024 Michael Distant LLQ abdominal pain R10.32 ; Dysuria R30.0 ; Acute UTI N39.0 ; Essential (primary) hypertension I10 and BMI 27.0-27.9,adult Z68.27 Assessments Encounter Date Diagnosis (ICD Code) Assessment Notes Treatment Notes Treatment Clinical Notes Section Notes 10/11/2024 LLQ abdominal pain (ICD-10 - R10.32) 10/11/2024 Dysuria (ICD-10 - R30.0) 10/11/2024 Acute UTI (ICD-10 - N39.0) 10/11/2024 Essential (primary) hypertension (ICD-10 - I10) 10/11/2024 BMI 27.0-27.9,adult (ICD-10 - Z68.27) Plan Of Treatment Medication Medication Name Sig Start Date Stop Date Notes Macrobid 100 MG 1 capsule with food Orally every 12 hrs; Duration: 5 days 10/11/2024 Scopolamine 1 MG/3DAYS 1 patch to skin b ehind the ear as needed Transdermal every 72 hours as needed 10/11/2024 Next Appt Details Follow Up: via phone to repo rt progress, Reason: Provider Name:Michael jernigan, 12/22/2024 10:00:00 AM, [address], [place], [phone], Provider Name:Michael Jen jernigan, 01/31/2025 09:15:00 AM, [address], [address], [place], [phone], Progress Notes * BRIDGET MARTINEZOB:1960 (64 yo F)Acc No.[id number]:10/11/2024 Progress Notes Patient: ALIYAH DENT Provider: Nicole Perdomo M.D. :1960 A ge:64 Y S ex:Female Date:10/11/2024 Address:[address] [place] [address] [id number] Subjective: * Chief Complaints: * 1 . Diverticulitis flare up. * HPI: G astroenterology: 64 year old female presents with c/o Abdominal Pain T he patient is here today with c/o left lower quadrant abdominal pain. Pt states this started on Wednesday morning. Pt states the pain is better today. Pt denies any diarrhea. Pt states she has a history of diverticulitis. * ROS: D ERMATOLOGY: no R zandra. n o H crista. G ASTROENTEROLOGY: no N ausea. n o V omiting. n o D iarrhea.? U ROLOGY: no D ifficulty urinating. n o B lood in urine. * Medical History: H ypertension, Hyperlipidemia, Peripheral Neuropathy, Arthritis, Low Back Pain, Degenerative Disc Disease, Esophageal Reflux, Hiatal Hernia, Esophageal Spasms, Hearing Loss, Carpal Tunnel Syndrome, [employer] - Dr. Fabian, Colon Cancer, Family Hx, Colon Polyps, Diverticulitis, 10/2021. * Surgical History: C holecystectomy 2005, Colonoscopy 2013, 2018, Partial Hysterectomy and Bladder Surgery 12/2019, Colpoperineoohapy w/ Dr Rai 01/02/2020, RT Carpal Tunnel Release 01/2023, LT Carpal Tunnel Release 02/2023. * Hospitalization/Major Diagno stic Procedure: V ertigo, UTI, Hypokalemia- [facility] 07/04/2018. * Family History: F ather: [...] and allow to dissolve Orally , Taking Meloxicam 15 MG Tablet 1 tab(s) orally once a day , Taking Levothyroxine Sodium 25 MCG Tablet 1 tab(s) orally once a day , Medication List reviewed and reconciled with the patient * Allergies: C odeine: stomach upset - Allergy, Augmentin: stomach upset - Allergy. Objective: * Vitals: W t: 163.0, Temp: 98.2, BP: 120/88, HR: 79, Nurse: CECIL, Ht: 64.25, BMI:27.76. * Examination: G eneral Examination: General Appearance: N AD. H eart: R SR. L ungs:?clear to auscultation. A bdomen: b owel sounds present , soft, minimal LLQ tenderness to palpation , no guarding or rigidity. B ack: n o CVA tenderness. Assessment: * Assessment: 1. L LQ abdominal pain - R10.32 (Primary) 2 . D ysuria - R30.0 ?3. A cute UTI - N39.0 4 . E ssential (primary) hypertension - I10 ? 5 . B OK 27.0-27.9,adult - Z68.27 Plan: * Treatment: Value Reference Range w bc 5.4 3.5 - 10 * l ym 30.6% 15 - 50 * m id 6.2% 2 - 15 * g ran 63.2% 35 - 80 * r bc 4.96 3.5 - 5.5 * h gb 15.1 11.5 - 16.5 * h ct 45.8 35 - 55 * m cv 92.2 75 - 100 * m ch 30.4 25 - 35 * m chc 32.9 31 - 38 * p lat 214 100 - 400 * Stephanie Hay 10/11/2024 09 :00:28 AM > Provider reviewed results while patient in office. 2.?Dysuria?LAB: P-Culture, Urine (Collection Date & Time - 10/11/2024 08:57 AM)?No growth* Value Reference Range C ulture, Urine See Below - * S pecimen Source Urine - Void - * Rosie Domingo 10/13/2024 09:3 5:02 AM >pt started on MacrobidGFaiza hilton 10/13/2024 12:21:18 PM > pt informed of results ?LAB: Urinalysis - Inhouse (Collection Date & Time - 10/11/2024)* Value Reference Range C olor/Clarity yellow/clear * L euk Trace * N itrite Neg * U robili 3.2 * P rotein Neg * p H 6.0 * B lood Neg * S p. Gr. <1.005 * K etone Neg * B eryn Neg * G rogelio Neg * Stephanie Hay 10/11/2024 09 :22:01 AM > Provider reviewed results while patient in office. 3.?Acute UTI? Start Macrobid Capsule, 100 MG, 1 capsule with food, Orally, every 12 hrs, 5 days, 10.??4.?Others? Start Scopolamine Patch 72 Hour, 1 MG/3DAYS, 1 patch to skin behind the ear as needed, Transdermal,every 72 hours as needed, 4, Refills 0.?? * Procedure Codes: G 2211 Complex e/[place], [address] CAPILLARY BLOOD DRAW, 45660 CBC WITH AUTO DIFF, 45150 Urinalysis, no micro, 3074F SYST BP LT 130 MM HG, 3079F DIAST BP 80-89 MM HG, G8420 BMI<30 AND >=22 CALC & DOCU * Follow Up: v ia phone to report progress * Images: Billing Information: * Visit Code: 06195 Office Visit, Est Pt., Level 3. * Procedure Codes: G2211 Complex e/[place]. [address] CAPILLARY BLOOD DRAW. 40188 CBC WITH AUTO DIFF. 60457 Urinalysis, no micro. 3074F SYST BP LT 130 MM HG. 3079F DIAST BP 80-89 MM HG. G8420 BMI<30 AND >=22 CALC & DOCU. * Electronic signature of Sydney Perdomo MD on 12/22/2024 at 10:52 AM EDT Sign off status: Pending * Provider: Nicole Perdomo M.D. Date: 0 10/11/2024 Generated for Farideh callahan/Harshad/Corineitting on: 0 12/22/2024 10:52 AM EDT History and Physical Notes * HPI (History of Present Illness) Category Sub-Category Detail Notes Category Not es Gastroenterology Abdominal Pain The patient is here today with c/o left lower quadrant abdominal pain. Pt states this started on Wednesday morning. Pt states the pain is better today. Pt denies any diarrhea. Pt states she has a history of diverticulitis Examination Category Sub-Category Detail Notes Category Not es General Examination Heart: RSR Lungs: clear to auscultatio n Abdomen: bowel sounds present , soft, minimal LLQ tenderness to palpation , no guarding or rigidity General Appearance: NAD Back: no CVA tenderness
--- OUTSIDE RECORDS SUMMARY | 2024-10-24 09:45 | XMS_ITS | Encounter Summary ---
Author Organization [employer] ([place], [place], [place], [place]) Address [address] [place] [address] Care Team Providers Care Garbage Collector Name Role Phone Michael Perdomo MD Primary Care Provider [phone] Reason for Visit * Reason Comments Polyneuropathy Encounter Details Date Type Department Care Team (Latest Contact Info) Description 10/24/2024 9:45 AM EDT Office Visit [facility] Neurology - [facility] [address] [place] [id number] Serena Martinez MD [address] [place] [address] Idiopathic polyneuropathy (Primary Dx); Other fatigue; Avitaminosis D; Balance problems Social History Tobacco Use Types Packs/Day Years Used Date Smoking Tobacco: Never Smokeless Tobacco: Never Tobacco Cessation:Counseling Given: Not Answered Alcohol Use Standard Drinks/Week Comments Never 0 (1 standard drink = 0.6 oz pur e alcohol) Family and Community Support Answer Rome e Recorded Help with Day to Day Activities Not on file 06/04/2023 Feeling Lonely or Isolated Not on file 06/04 Educational Attainment Answer Date Felipe rded Speak language other than Canadian at home Not on file 06/04/2023 Want help with school or training Not on file 06/04/2023 Substance Use Answer Date Recorded Used prescription meds for non-medical reasons N ot on file 06/04/2023 Used illegal drugs past 12 months Not on file 06/04/2023 Comments Unknown Sex and Gender Information Value Date Recorded Sex Assigned at Not on file Legal Sex Female 5:07 PM CDT Gender Identity Not on file Sexual Orientation Not on file documented as of this encounter Last Filed Vital Signs Vital Sign Reading Time Taken Comments Blood Pressure 112/74 10/24/2024 9:37 AM EDT Pulse 68 10/24/2024 9:37 AM EDT Temperature - - Respiratory Rate - - Oxygen Saturation - - Inhaled Oxygen Concentration - - Weight 73.9 kg (163 lb) 10/24/2024 9:37 AM EDT Height 162.6 cm (5' 4 ) 10/24/2024 9:37 AM EDT Body Mass Index 27.98 10/24/2024 9:37 AM EDT documented in this encounter Progress Notes * Serena Martinez MD - 10/24/2024 9:45 AM EDT Subjective Nisa Hatch is a 64 y.o. female Chief Complaint Patient presents with Polyneuropathy I have reviewed and/or updated the following: Tobacco Allergies Meds Problems Med Hx Surg Hx Fam Hx Ms. Simms has polyneuropathy. She is on Gralise 1800 mg daily which works very well for her neuropathy. She also takes tizanidine at night. She is having some pain in her feet but mainly in the morning when she first starts to walk. She has a history of plantar fasciitis. She has not seen a ethylene plant operator in some time. She does stumble but no recent falls. She does take B12 1000 mcg daily Review of Systems All other systems reviewed and are negative. Radiology Results (last 7 days) No results found for the last 168 hours. No visits with results within 1 Day(s) from this visit. Latest known visit with results is: Office Visit on 11/17/2023 Component Date Value Ref Range Status Vitamin B12 11/17/2023 >2000 (H) 232 - 1245 pg/mL Final Vitamin D, 25-Hydroxy 11/17/2023 39.2 30.0 - 100.0 ng/mL Final Comment: Vitamin D deficiency has been defined by the [employer] of [employer] and an Endocrine Society practice guideline as a level of serum 25-OH vitamin D less than 20 ng/mL (1,2). The Endocrine Society went on to further define vitamin D insufficiency as a level between 21 and 29 ng/mL (2). 1. IOM (Ax[employer] of Medicine). 2010. Dietary reference intakes for calcium and D. [place]: The National Academies Press. 2. Leslie MF, Felicita CRISTOBAL, Lizbeth BUCKNER, et al. Evaluation, treatment, and prevention of vitamin D deficiency: an Endocrine Society clinical practice guideline. JCEM. 2010; 96(7):1911-30. Folate (Folic Acid), Serum 11/17/2023 >20.0 >3.0 ng/mL Final Comment: A serum folate concentration of less than 3.1 ng/mL is considered to represent clinical deficiency. Vit. B1, Whole Blood 11/17/2023 100.6 66.5 - 200.0 nmol/L Final Vitamin B6 11/17/2023 14.9 3.4 - 65.2 ug/L Final Comment: Deficiency: <3.4 Marginal: 3.4 - 5.1 Adequate: >5.1 Glucose, Serum 11/17/2023 112 (H) 70 - 99 mg/dL Final BUN 11/17/2023 10 8 - 27 mg/dL Final Creatinine, Serum 11/17/2023 0.54 (L) 0.57 - 1.00 mg/dL Final EGFR 11/17/2023 103 >59 mL/min/1.73 Final BUN/Creatinine Ratio 11/17/2023 19 12 - 28 Final Sodium, Serum 11/17/2023 138 134 - 144 mmol/L Final Potassium, Serum 11/17/2023 4.0 3.5 - 5.2 mmol/L Final Chloride, Serum 11/17/2023 102 96 - 106 mmol/L Final Carbon Dioxide, Total 11/17/2023 21 20 - 29 mmol/L Final Calcium, Serum 11/17/2023 9.8 8.7 - 10.3 mg/dL Final Protein, Total, Serum 11/17/2023 7.0 6.0 - 8.5 g/dL Final Albumin, Serum 11/17/2023 4.4 3.9 - 4.9 g/dL Final Globulin, Total 11/17/2023 2.6 1.5 - 4.5 g/dL Final Bilirubin, Total 11/17/2023 0.2 0.0 - 1.2 mg/dL Final Alkaline Phosphatase, S 11/17/2023 75 44 - 121 IU/L Final AST (SGOT) 11/17/2023 24 0 - 40 IU/L Final ALT (SGPT) 11/17/2023 45 (H) 0 - 32 IU/L Final Objective BP 112/74 Pulse 68 Ht 1.626 m (5' 4 ) Wt 73.9 kg (163 lb) BMI 27.98 kg/m?? Neurological Exam Mental Status Awake, alert and oriented to person, place and time. Speech is normal. Language is fluent with no aphasia. Attention and concentration are normal. Fund of knowledge is appropriate for level of education. Cranial Nerves CN II: Visual acuity is normal. Visual holt full to confrontation. CN III, IV, : Extraocular movements intact bilaterally. Normal lids and orbits bilaterally. Pupils equal round and reactive to light bilaterally. CN V: Facial sensation is normal. CN VII: Full and symmetric facial movement. CN VIII: Hearing is normal. CN IX, X: Palate elevates symmetrically. Normal gag reflex. CN XI: Shoulder shrug strength is normal. CN XII: Tongue midline without atrophy or fasciculations. Motor Normal muscle bulk throughout. Normal muscle tone. Strength is 5/5 throughout all four extremities. Sensory Light touch is normal in upper and lower extremities. Temperature is normal in upper and lower extremities. Vibration is normal in upper and lower extremities. Reflexes Right Left Brachioradialis 2+ 2+ Biceps 2+ 2+ Triceps 2+ 2+ Patellar 2+ 2+ Achilles Tr Tr Right Plantar: downgoing Left Plantar: downgoing Coordination Zncocd-ol-hrah, rapid alternating movements and [id number] normal bilaterally without dysmetria. Gait Casual gait is normal including stance, stride, and arm swing. Able to rise from chair without using arms. Physical Exam Vitals and nursing note reviewed. Constitutional: Appearance: Normal appearance. Eyes: General: Lids are normal. Extraocular Movements: Extraocular movements intact. Conjunctiva/sclera: Conjunctivae normal. Pupils: Pupils are equal, round, and reactive to light. Cardiovascular: Rate and Rhythm: Normal rate and regular rhythm. Pulmonary: Effort: Pulmonary effort is normal. Breath sounds: Normal breath sounds. Musculoskeletal: Cervical back: Normal range of motion and neck supple. Skin: General: Skin is warm and dry. Neurological: Motor: Motor strength is normal. Coordination: Coordination is intact. Deep Tendon Reflexes: Reflex Scores: Tricep reflexes are 2+ on the right side and 2+ on the left side. Bicep reflexes are 2+ on the right side and 2+ on the left side. Brachioradialis reflexes are 2+ on the right side and 2+ on the left side. Patellar reflexes are 2+ on the right side and 2+ on the left side. Psychiatric: Mood and Affect: Mood normal. Speech: Speech normal. Behavior: Behavior normal. Thought Content: Thought content normal. Judgment: Judgment normal. Assessment 1. Idiopathic polyneuropathy 2. Other fatigue 3. Avitaminosis D 4. Balance problems Plan 1. Polyneuropathy. I am changing the Gralise to gabapentin ER 1800 mg daily. She will continue the tizanidine at night. I do want her to have lab work to check for vitamin deficiencies. She will stayon the B12 1000 mcg daily Diagnoses and all orders for this visit: Idiopathic polyneuropathy - Vitamin B12 w reflex <400 - Vitamin D, 25-Hydroxy - Folate, Serum - Comprehensive metabolic panel - CBC with automated diff - Vitamin B1 (Thiamine), Whole Blood, LC/MS/MS - Vitamin B6, Plasma - gabapentin (GRALISE) 600 mg; Take 3 tablets (1,800 mg total) by mouth daily with dinner for 180 days. Max Daily Amount: 1,800 mg Other fatigue - Vitamin B12 w reflex <400 - Vitamin D, 25-Hydroxy - Folate, Serum - Comprehensive metabolic panel - CBC with automated diff - Vitamin B1 (Thiamine), Whole Blood, LC/MS/MS - Vitamin B6, Plasma Avitaminosis D - Vitamin B12 w reflex <400 - Vitamin D, 25-Hydroxy - Folate, Serum - Comprehensive metabolic panel - CBC with automated diff - Vitamin B1 (Thiamine), Whole Blood, LC/MS/MS - Vitamin B6, Plasma Balance problems - Vitamin B12 w reflex <400 - Vitamin D, 25-Hydroxy - Folate, Serum - Comprehensive metabolic panel - CBC with automated diff - Vitamin B1 (Thiamine), Whole Blood, LC/MS/MS - Vitamin B6, Plasma - gabapentin (GRALISE) 600 mg; Take 3 tablets (1,800 mg total) by mouth daily with dinner for 180 days. Max Daily Amount: 1,800 mg Return in about 6 months (around 04/25/2025). documented in this encounter Plan of Treatment Upcoming Encounters Date Type Department Care Team (Late st Contact Info) Description 05/01/2025 9:45 AM EST Office Visit [facility] Neurology - [place] [address] [place] [address] Serena Martinez MD [address] [place] [address] Scheduled Orders Name Type Priority Associated Diagnoses Orde r Schedule CBC with automated diff Lab Routine Idiopathic polyneuropathy Other fatigue Avitaminosis D Balance problems Ordered: 10/24/2024 documented as of this encounter Procedures Procedure Name Priority Date/Time Associated Diagnosis Comments VITAMIN B12 W REFLEX <400 Routine 10/24/2024 10:32 AM EDT Idiopathic polyneuropathy Other fatigue Avitaminosis D Balance problems VITAMIN B1 (THIAMINE), WHOLE BLOOD, LC/MS/MS Routine 10/24/2024 10:32 AM EDT Idiopathic polyneuropathy Other fatigue Avitaminosis D Balance problems CBC DIFF AMBIGUOUS DEFAULT Routine 10/24/2024 10:32 AM EDT VITAMIN D, 25-HYDROXY Routine 10/24/2024 10:32 AM EDT Idiopathic polyneuropathy Other fatigue Avitaminosis D Balance problems VITAMIN B6, PLASMA Routine 10/24/2024 10 :32 AM EDT Idiopathic polyneuropathy Other fatigue Avitaminosis D Balance problems FOLATE, SERUM Routine 10/24/2024 10:32 AM EDT Idiopathic polyneuropathy Other fatigue Avitaminosis D Balance problems COMPREHENSIVE METABOLIC PANEL Routine 10/24/2024 10:32 AM EDT Idiopathic polyneuropathy Other fatigue Avitaminosis D Balance problems documented in this encounter Results * CBCDIFF AMBIGUOUS DEFAULT (10/24/2024 10:32 AM EDT) WBC 7.1 3.4 - 10.8 x10E3/uL [facility] RBC 4.57 3.77 - 5.28 x10E6/uL [facility] Hemoglobin 14.1 11.1 - 15.9 g/dL [facility] Hematocrit 43.4 34.0 - 46.6 % [facility] MCV 95 79 - 97 fL [facility] MCH 30.9 26.6 - 33.0 pg [facility] MCHC 32.5 31.5 - 35.7 g/dL [facility] RDW 11.8 11.7 - 15.4 % [facility] Platelets 254 150 - 450 x10E3/uL [facility] % Neutros 65 Not Estab. % [facility] % Lymphs 23 Not Estab. % [facility] % Monos 9 Not Estab. % [facility] % Eos 2 Not Estab. % [facility] % Baso 1 Not Estab. % [facility] # Neutros 4.6 1.4 - 7.0 x10E3/uL [facility] # Lymphs 1.6 0.7 - 3.1 x10E3/uL [facility] # Monos 0.6 0.1 - 0.9 x10E3/uL [facility] # Eos 0.2 0.0 - 0.4 x10E3/uL [facility] Baso (Absolute) 0.0 0.0 - 0.2 x10E3/uL [facility] % Immature Grans 0 Not Estab. % [facility] # Immature Grans 0.0 0.0 - 0.1 x10E3/uL [facility] Comment: A hand-written panel/profile was received from your office. In accordance with the [facility] Ambiguous Test Code Policy dated November 2002, we have assigned CBC with Differential/Platelet, Test Code #134966 to this request. If this is not the testing you wished to receive on this specimen, please contact the [facility] Client Inquiry/ Technical Services Department to clarify the test order. We appreciate your business. 10/24/2024 10:3 2 AM EDT 10/24/2024 Narrative [facility] - 11/01/2024 3:06 AM EDT Performed at: 01 - [address] [id number] Chemic Mangler: Gerry Rivera PhD, Phone: [phone] Serena Martinez MD LAB BLOOD ORDERABLES Final R esult Performing Organization Address [facility] Co de Phone Number [facility] * Vitamin B6, Plasma (10/24/2024 10:32 AM EDT) Pathologist [facility] Vitamin B6 9.8 3.4 - 65.2 ug/L [facility] Comment: Deficiency: <3.4 Marginal: 3.4 - 5.1 Adequate: >5.1 Blood 10/24/2024 10:3 2 AM EDT 10/24/2024 Narrative [facility] - 11/01/2024 3:06 AM EDT Test(s) [id number] B6 was developed and its performance characteristics determined by [facility]. It has not been cleared or approved by the Food and Drug Administration. Performed at: [address] [id number] Chemic Mangler: Rita Montoya MD, Phone: [phone] Serena Martinez MD LAB BLOOD ORDERABLES Final R esult Performing Organization Address [facility] Co de Phone Number [facility] * Vitamin B1 (Thiamine), Whole Blood, LC/MS/MS (10/24/2024 10:32 AM EDT) [facility] Vit. B1, Whole Blood 104.2 66.5 - 200.0 nmol/L [facility] 10/24/2024 10:3 2 AM EDT 10/24/2024 Narrative [facility] - 11/01/2024 3:06 AM EDT Test(s) [id number]-Lke. B1, Whole Blood was developed and its performance characteristics determined by [facility]. It has not been cleared or approved by the Food and Drug Administration. Performed at: [address] [id number] Chemic Mangler: Rita Montoya MD, Phone: [phone] Serena Martinez MD LAB BLOOD ORDERABLES Final R esult [facility] * Comprehensive metabolic panel (10/24/2024 10:32 AM EDT) Glucose, Serum 73 70 - 99 mg/dL [facility] BUN 11 8 - 27 mg/dL [facility] Creatinine, Serum 0.71 0.57 - 1.00 mg/dL [facility] EGFR 94 >59 mL/min/1.73 [facility] BUN/Creatinine Ratio 15 12 - 28 [facility] Sodium, Serum 143 134 - 144 mmol/L [facility] Potassium, Serum 4.2 3.5 - 5.2 mmol/L [facility] Chloride, Serum 105 96 - 106 mmol/L [facility] Carbon Dioxide, Total 23 20 - 29 mmol/L [facility] Calcium, Serum 9.6 8.7 - 10.3 mg/dL [facility] Protein, Total, Serum 7.0 6.0 - 8.5 g/dL [facility] Albumin, Serum 4.4 3.9 - 4.9 g/dL [facility] Globulin, Total 2.6 1.5 - 4.5 g/dL [facility] Bilirubin, Total <0.2 0.0 - 1.2 mg/dL [facility] Alkaline Phosphatase, S 83 44 - 121 IU/L [facility] AST (SGOT) 19 0 - 40 IU/L [facility] ALT (SGPT) 28 0 - 32 IU/L [facility] Blood 10/24/2024 10:3 2 AM EDT 10/24/2024 Narrative [facility] - 11/01/2024 3:06 AM EDT Performed at: 01 - [facility] [address] [id number] Chemic Mangler: Gerry Rivera PhD, Phone: [phone] us Serena Martinez MD LAB BLOOD ORDERABLES Final R esult [facility] * Folate, Serum (10/24/2024 10:32 AM EDT) Folate (Folic Acid), Serum >20.0 >3.0 ng/mL [facility] Comment: A serum folate concentration of less than 3.1 ng/mL is considered to represent clinical deficiency. Blood 10/24/2024 10:3 2 AM EDT 10/24/2024 Narrative [facility] - 11/01/2024 3:06 AM EDT Performed at: - [address] [id number] Chemic Mangler: Gerry Rivera PhD, Phone: [phone] Serena Martinez MD LAB BLOOD ORDERABLES Final R esult Performing Organization Address [facility]/ZIP Co de Phone Number [facility] * Vitamin D, 25-Hydroxy (10/24/2024 10:32 AM EDT) [facility] Vitamin D, 25-Hydroxy 44.3 30.0 - 100.0 ng/mL [facility] Comment: Vitamin D deficiency has been defined by the [employer] of [employer] and an Endocrine Society practice guideline as a level of serum 25-OH vitamin D less than 20 ng/mL (1,2). The Endocrine Society went on to further define vitamin D insufficiency as a level between 21 and 29 ng/mL (2). 1. IOM (Ax[employer] of Medicine). 2010. Dietary reference intakes for calcium and D. [place]: The National Academies Press. 2. Leslie COWAN, Felicita CRISTOBAL, Lizbeth BUCKNER, et al. Evaluation, treatment, and prevention of vitamin D deficiency: an Endocrine Society clinical practice guideline. JCEM. 2010; 96(7):1911-30. Blood 10/24/2024 10:3 2 AM EDT 10/24/2024 Narrative [facility] - 11/01/2024 3:06 AM EDT Performed at: - [facility] [id number] Chemic Mangler: Gerry Rivera PhD, Phone: [phone] us Serena Martinez MD LAB BLOOD ORDERABLES Final R esult Performing Organization Address City/[facility]/ZIP Co de Phone Number [facility] * (ABNORMAL) Vitamin B12 w reflex <400 (10/24/2024 10:32 AM EDT) Vitamin B12 1,679(H) 232 - 1,245 pg/mL [facility] 10/24/2024 10:3 2 AM EDT 10/24/2024 Narrative [facility] - 11/01/2024 3:06 AM EDT Performed at: 01 - [facility] [id number] Chemic Mangler: Gerry Rivera PhD, Phone: [phone] us Serena Martinez MD LAB BLOOD ORDERABLES Final R esult [facility] documented in this encounter Visit Diagnoses Diagnosis Idiopathic polyneuropathy- Primary Other fatigue Avitaminosis D Unspecified vitamin D deficiency Balance problems Abnormality of gait documented in this encounter Care Teams Garbage Collector Relationship Specialty Start Date End Date Michael Perdomo MD [address] [facility] [address] [place] [address] PCP - General Family Medicine 04/27/22 documented as of this encounter
--- OUTSIDE RECORDS SUMMARY | 2024-12-22 10:52 | XMS_ITS | Encounter Summary ---
Author Organization [employer] ([place], [place], [place], [place]) Address [address] [place] [address] Care Team Providers Care Senior Search Marketing Analyst Name Role Phone Michael Perdomo MD Primary Care Provider [phone] Reason for Visit * Reason Comments Medication Refill Encounter Details Date Type Department Care Team (Late st Contact Info) Description 06/05/2022 Refill [facility] Neurology - [place] [address] [place] [address] Serena Martinez MD [address] [place], [place] [id number] Polyneuropathy Social History Tobacco Use Types Packs/Day Years Used Date Smoking Tobacco: Never Smokeless Tobacco: Never Comments Unknown Sex and Gender Information Value Date Recorded Sex Assigned at Not on file Legal Sex Female 5:07 PM CDT Gender Identity Not on file Sexual Orientation Not on file documented as of this encounter Plan of Treatment Upcoming Encounters Date Type Department Care Team (Late st Contact Info) Description 05/01/2025 9:45 AM EST Office Visit [facility] Neurology - [place] [address] [place] [address] Serena Martinez MD [address] [place] [address] documented as of this encounter Visit Diagnoses Diagnosis Polyneuropathy Unspecified hereditary and idiopathic peripheral neuropathy documented in this encounter Care Teams Senior Search Marketing Analyst Relationship Specialty Start Date End Date Michael Perdomo MD [address] [place] [facility] [address] [place] [address] PCP - General Family Medicine 04/27/22 documented as of this encounter
--- OUTSIDE RECORDS SUMMARY | 2024-12-22 10:52 | XMS_ITS | Encounter Summary ---
Author Organization [facility] Address [address] [place] [id number] Care Team Providers Care Internal Audit Manager Name Role Phone Michael Perdomo MD Primary Care Provider [phone] Encounter Details Date Type Department Care Team (Late st Contact Info) Description 09/25/2024 Results Follow-Up [facility] PATIENT ACCESS [address] [place] [address] David Fabian MD [address] [place] [address] Social History Tobacco Use Types Packs/Day Years [...] Description 09/20/2025 9:30 AM EDT Office Visit [facility] O[facility] [address] [address] David Fabian MD [address] [address] documented as of this encounter Visit Diagnoses Not on filedocumented in this encounter Care Teams Internal Audit Manager Relationship Specialty Start Date End Date Michael Perdomo MD [address] [place] [facility] [address] [facility] [address] [place] [address] PCP - General Family Medicine 04/03/22 documented as of this encounter
--- OUTSIDE RECORDS SUMMARY | 2024-12-22 10:52 | XMS_ITS | Patient Health Record ---
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 Booth Operator Name Role Phone Michael Perdomo Primary Care Provider [phone] Sharmin Ellison Unavailable [phone] Allergies Allergen (clinical drug ingredient) Drug/Non Drug [...] <1.005 Ketone Neg Bili Neg Gluc Neg P-Culture, Urine Reviewed date:10/13/2024 12:22:06 PM Interpretation:No growth Performing Lab: Notes/Report: Test performed by [facility] [address] [place] [address] , [address], [place] [address] Osmany Calix MD, Editor Sound CLIA: [id number] Specimen Source Urine - Void Culture, Urine See Below Final Report : No growth CBC Fingerstick (in house) Reviewed date:10/11/2024 12:12:15 [...] - 38 plat 214 100 - 400 P-TSH Reviewed date:08/02/2024 12:19:07 PM Interpretation:Normal Performing Lab: Notes/Report: Test performed by [facility] [address] [place] [address] [place] [address] Osmany Calix MD, [employer] CLIA: [id number] TSH 4.02 0.43-5.25 mU/L P-Lipid Panel Reviewed date:08/02/2024 12:19:07 PM Interpretation:satisfactory Performing Lab: Notes/Report: Test performed by [facility] [address] [place] [address] [address] C, [place] [address] Osmany Calix MD, [employer] CLIA: [id number] Cholesterol 186 <200 mg/dL Triglycerides 127 <150 [...] Results: 105 Units: mg/dL % Change: +9% P-T4 Free (thyroxine) Reviewed date:08/02/2024 12:19:06 PM Interpretation:Normal Performing Lab: Notes/Report: Test performed by [facility] [address] [place] [address] , [place] [address] Osmany Calix MD, [employer] CLIA: [id number] Thyroxine Free (free T4) 1.00 0.86-1.76 ng/dL P-Comprehensive Metabolic Pa austin (CMP) Reviewed date:08/02/2024 12:19:07 PM Interpretation:Normal Performing Lab: Notes/Report: Test performed by [facility] [address] [place] [address] [address], [place] [address] Osmany Calix MD, [employer] CLIA: [id number] Sodium 142 135-145 mmol/L Potassium 4.8 3.5-5.3 [...] 0.5 <0.2-1.2 mg/dL A/G Ratio 1.6 1.1-2.5 CBC Venipuncture (in house) Reviewed date:03/10/2024 10:19:46 AM Interpretation: Normal Performing Lab: Notes/Report: Normal wbc 7.0 3.5 - 10 lymph 24.9% 15 - 50 mid 6.6% 2 - 15 gran 68.5% 35 - 80 rbc 4.51 3.5 - 5.5 hgb 14.0 11.5 - 16.5 hct 41.7 35 - 55 mcv 92.3 75 - 100 mch 31.1 25 - 35 mchc 33.7 31 - 38 platlet 267 100 - 400 R-V-Snvlnhdj Protein (CRP) Reviewed date:03/10/2024 01:24:17 PM Interpretation:Normal Performing Lab: Notes/Report: Test performed by [facility] [address] [place] [address] , [address], [place] [address] Osmany Calix MD, [employer] CLIA: [id number] C-Reactive Protein (CRP) 0.34 <0.50 mg/dL P-Sed Rate (ESR) Reviewed date:03/10/2024 01:24:17 PM Interpretation:Normal Performing Lab: Notes/Report: Test performed by [facility] [address] [place] [address] , [address], [place] [address] Osmany Calix MD, [employer] CLIA: [id number] Erythrocyte Sedimentation Rate (ESR), Automated 24 <31 mm/hr P-Uric Acid Reviewed date:03/10/2024 01:24:17 PM Interpretation:Normal Performing Lab: Notes/Report: Test performed by [facility] [address] [place] [address] , [address], [place] [address] Osmany Calix MD, Editor [employer] CLIA: [id number] Uric Acid 5.0 2.4-7.0 mg/dL Reason For Referral Diagnosis 1 Plantar fasciitis of right foot (M72.2) Referral Organization [facility] Referring Provider First Name Michael Referring Provider Last Name Conor Referring Provider Speciality Family Pra ctice Referred Provider Whitney Currie Referred Provider Specialty Podiatry General Notes Melani Weber 2024 10:32:23 AM > faxed to [facility] Podiatry Referral Priority Routine Medications Medication SIG (Take, Route, Frequency, Duration) Notes Start Date End Date Status Meloxicam 15 MG 1 tab(s) orally once a day; Duration: 90 days Active Nurtec 75 MG 1 tablet on the tong ue and allow to dissolve Orally 07/09/2023 Active Levothyroxine Sodium 25 MCG 1 tab(s) ora lly once a day; Duration: 90 days Active B-12 1000 MCG 1 tab(s) orally once a day; Duration: 30 day(s) Active Vitamin D3 25 MCG (1000 UT) 1 tab(s) ora lly once a day; Duration: 30 day(s) Active Gralise 600 MG 2 tab(s) orally qhs Active tiZANidine HCl 4 MG 1 tab(s) orally once daily Active Immunizations Vaccine Route Administration Date Status Comme nts COVID 19 Moderna Unknown 07/01/2020 Administered Fluzone Quad (6months&older) IM Intramuscular 02/27/2021 Administered PNEUMOVAX 23 VACCINE IM Intramuscular 08/11/2016 Administe red Shingrix Unknown 03/12/2022 Administered Shingrix Unknown 05/12/2022 Administered xFlu shot- 6months-36 months of vpm-YGSF-NLJC-trivalent Unknown 04/10/2016 Administered Problems Problem Type SNOMED Code ICD Code Onset Dates Problem Status W/U Status Risk Notes Problem Essential hypertension (45457123) Essential (primary) hypertension (I10) Active confirmed Problem Vitamin D deficiency (38139459) Vitamin D deficiency (E55.9) Active confirmed Problem Diverticulitis (90750006) Diverticulitis (K57.92) Active confirmed Problem Hypertriglyceridemia (517076823) Hypertriglyceridemia (E78.1) Active confirmed Problem Plantar fasciitis of right foot (73286241379842360) Plantar fasciitis of right foot (M72.2) Active confirmed Problem Acquired hypothyroidism (726082621) Acquired hypothyroidism (E03.9) Active confirmed Problem Gastroesophageal reflux disease (501036329) Gastroesophageal reflux disease, esophagitis presence not specified (K21.9) Active confirmed Problem Migraine with aura (0759153) Migraine with aura and without status migrainosus, not intractable (G43.109) Active confirmed Problem Serum thyroid stimulating hormone level outside reference range (finding) (892975581) Abnormal TSH (R79.89) Active confirmed Problem Leukocytosis (272105176) Leukocytosis, unspecified (D72.829) Active confirmed Problem Degenerative disc disease (96376908) DDD (degenerative disc disease), lumbar (M51.36) Active confirmed Problem Pure hypercholesterolemia (814533115) Pure hypercholesterolemia (E78.00) Active confirmed Problem Sciatica (83003097) Right-sided low back pain with right-sided sciatica, unspecified chronicity (M54.41) Active confirmed Problem Diverticulitis of colon (753286349) Diverticulitis of large intestine without bleeding, unspecified complication status (K57.32) Active confirmed Problem Localized, primary osteoarthritis of the shoulder region (107670683) Arthritis of right shoulder region (M19.011) Active confirmed Vital Signs Heart Rate 86 /min 12/22/2024 Blood pressure diastolic 72 mm Hg 12/22/2024 Height 64.25 in 12/22/2024 Blood pressure systolic 122 mm Hg 12/22/2024 Weight 163.8 lbs 12/22/2024 BMI 27.89 kg/m2 12/22/2024 Encounters Encounter Location Date Provider Diagnosis [facility] [address] [place] [id number] 02/01/2024 Michael Hazleton Acquired hypothyroid ism E03.9 ; Right-sided low back pain with right-sided sciatica, unspecified chronicity M54.41 and Epistaxis R04.0 [facility] [address] [place] [id number] 03/09/2024 Michael Hazleton Pain of right thumb M79.644 [facility] [place] [address] [facility] [address] [place] [id number] 07/31/2024 Michael Hazleton Acquired hypothyroid ism E03.9 ; Pure hypercholesterolemia E78.00 ; Hypertriglyceridemia E78.1 ; Gastroesophageal reflux disease, esophagitis presence not specified K21.9 and Right-sided low back pain with right-sided sciatica, unspecified chronicity M54.41 [facility] [place] [address] [place] [id number] 10/11/2024 Michael Hazleton LLQ abdominal pain R 10.32 ; Dysuria R30.0 ; Acute UTI N39.0 ; Essential (primary) hypertension I10 and BMI 27.0-27.9,adult Z68.27 [facility] [address] [facility] [address] [place] [id number] 12/22/2024 Michael Hazleton Plantar fasciitis of right foot M72.2 and Polyarthralgia M25.50 [facility] [address] [facility] [address] [place] [id number] 10/10/2024 Michael Hazleton Assessments Encounter Date Diagnosis (ICD Code) Assessment Notes Treatment Notes Treatment Clinical Notes Section Notes 02/01/2024 Acquired hypothyroid ism (ICD-10 - E03.9) 02/01/2024 Right-sided low back pain with right-sided sciatica, unspecified chronicity (ICD-10 - M54.41) 03/09/2024 Pain of right thumb (ICD-10 - M79.644) 07/31/2024 Acquired hypothyroid ism (ICD-10 - E03.9) 07/31/2024 Pure hypercholesterolemia (ICD-10 - E78.00) 10/11/2024 Dysuria (ICD-10 - R30.0) 10/11/2024 LLQ abdominal pain (ICD-10 - R10.32) 12/22/2024 Polyarthralgia (ICD- 10 - M25.50) 12/22/2024 Plantar fasciitis of right foot (ICD-10 - M72.2) 10/11/2024 Acute UTI (ICD-10 - N39.0) 02/01/2024 Epistaxis (ICD-10 - R04.0) ER note from 01/29/24 reviewed in office today 07/31/2024 Hypertriglyceridemia (ICD-10 - E78.1) 07/31/2024 Gastroesophageal ref lux disease, esophagitis presence not specified (ICD-10 - K21.9) 10/11/2024 Essential (primary) hypertension (ICD-10 - I10) 10/11/2024 BMI 27.0-27.9,adult (ICD-10 - Z68.27) 07/31/2024 Right-sided low back pain with right-sided sciatica, unspecified chronicity (ICD-10 - M54.41) Plan Of Treatment Pending Test Test Name Order Date X ray : Foot, right 12/22/2024 H-CBC 07/25/2021 H-COVIDPCR 07/25/2021 P-Arthritis Panel, [facility] 12/22/2024 Next Appt Details Provider Name:Michael Sandoval rere, 12/22/2024 10:00:00 AM, [address] [facility] 36 [facility], [address], [place], [place], [id number], Provider Name:Michael Sandoval rere, 01/31/2025 09:15:00 AM, [address] [facility] 36 [facility], [address], [place], [place], [id number], Insurance Providers Payer Name Payer Address Payer Phone Subscriber Number Group Number Insured Name Patient Relationship to Insured Coverage Start Date Coverage End Date [employer] (MEDICAR E) [address] [address] [place] [phone] [id number] ALIYAH MARTINEZ Self - patient is the insured Medications Administered Medication Instructions Date of Administration Dosage Notes Depo- Medrol 40 mg/ml 06/30/2018 1 mL Depo- Medrol 40 mg/ml 06/22/2020 1.5 mL Dexamethasone 06/30/2018 1 mL Dexamethasone 10/10/2018 1 mL Medical (General) History Medical History History ICD Code Hypertension Hyperlipidemia Peripheral Neuropathy Arthritis Low Back Pain Degenerative Disc Disease Esophageal Reflux Hiatal Hernia Esophageal Spasms Hearing Loss Carpal Tunnel Syndrome 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 Fabian Colon Cancer, Family Hx Colon Polyps Diverticulitis, 10/2021 Surgical History Surgery Date(Month/Year) Cholecystectomy 2006 Colonoscopy 2013, 2018 Partial Hysterectomy and Bladder Surgery 12/2019 Colpoperineoohapy w/ Dr Rai 020 RT Carpal Tunnel Release 01/2023 LT Carpal Tunnel Release 02/2023 Hospitalization History Reason Date(Month/Year) Vertigo, UTI, Hypokalemia- H ER 2018
--- OUTSIDE RECORDS SUMMARY | 2024-12-22 10:52 | XMS_ITS | Encounter Summary ---
Author Organization [employer] ([place], [place], [place], [place]) Address [address] [place] [address] Care Team Providers Care Director Medical Writing Name Role Phone Michael Perdomo MD Primary Care Provider + [phone] Reason for Visit * Reason Comments Medication Refill Encounter Details Date Type Department Care Team (Late st Contact Info) Description 06/12/2022 Refill [facility] Neurology - [place] [address] [place] [address] Serena Martinez MD [address] [place], [place] [id number] Polyneuropathy Social History Tobacco Use Types Packs/Day [...] Description 05/01/2025 9:45 AM EST Office Visit [facility] Neurology - [place] [address] [place] [address] Serena Martinez MD [address] [place] [address] documented as of this encounter Visit Diagnoses Diagnosis Polyneuropathy Unspecified hereditary and idiopathic peripheral neuropathy documented in this encounter Care Teams Director Medical Writing Relationship Specialty Start Date End Date Michael Perdomo MD [address] [place] [facility] [address] [place] [address] PCP - General Family Medicine 04/27/22 documented as of this encounter
--- OUTSIDE RECORDS SUMMARY | 2024-12-22 10:52 | XMS_ITS | Encounter Summary ---
Author Organization [employer] ([place], [place], [place], [place]) Address [address] [place] [address] Care Team Providers Care Internet Designer Name Role Phone Michael Perdomo MD Primary Care Provider [phone] Reason for Visit * Reason Onset Date Comments Medication Refill 06/17/2022 Encounter Details Date Type Department Care Team (Late st Contact Info) Description 06/17/2022 Refill [facility] Neurology - [place] [address] [place] [address] Serena Martinez MD [address] [place], [place] [phone] Polyneuropathy Social History Tobacco Use Types Packs/Day [...] Description 05/01/2025 9:45 AM EST Office Visit [facility] Neurology - [place] [address] [place] [address] Serena Martinez MD [address] [place], [place] [phone] documented as of this encounter Visit Diagnoses Diagnosis Polyneuropathy Unspecified hereditary and idiopathic peripheral neuropathy documented in this encounter Care Teams Internet Designer Relationship Specialty Start Date End Date Michael Perdomo MD [address] [place] [facility] [address] [place] [address] PCP - General Family Medicine 04/27/22 documented as of this encounter
--- NOTE | 2024-12-22 10:53 | XR_ITS ---
FINAL REPORT CLINICAL HISTORY: PLANTAR FASCITIS OF RT FOOT pain plantar surface, posterior to mid foot FINDINGS: RIGHT FOOT Three views were obtained. There is no fracture or dislocation. There is mild multi joint degenerative disease, most pronounced of the first metatarsal phalangeal joint. No soft tissue abnormality is identified. IMPRESSION: Multijoint degenerative disease. Reviewed, Interpreted and Dictated by Neha Lino MD Transcribed by Dominique Floyd Authenticated and [facility]
--- OUTSIDE RECORDS SUMMARY | 2024-12-22 10:53 | XMS_ITS | Clinical Summary ---
Author Organization [facility] Address [address] [place] [address] Care Team Providers Care Curriculum Specialist Name Role Phone Michael Perdomo MD Primary Care Provider [phone] Allergies Active Allergy Reactions Criticality Noted Date Comments Amoxicillin Hives 04/22/2019 Amoxicillin-Pot Clavulanate GI Intolerance Low 09/22 Clavulanic Acid Hives 05/31/2021 Codeine Itching,GI Intolerance Low 10/16/2016 Medications Cyanocobalamin (VITAMIN B-12 PO) Take 1 tablet by mouth Daily. Active Cholecalciferol (VITAMIN D3) 250 MCG (55011 UT) tablet Take 1,000 Units by mouth Daily. Active gabapentin (NEURONTIN) 600 MG tablet Take 1 tablet by mouth 3 (Three) Times a Day. Active levothyroxine (SYNTHROID, LEVOTHROID) 25 MCG tablet Take 1 tablet by mouth Daily. 05/09/2021 Active meloxicam (MOBIC) 15 MG tablet Take 1 tablet by mouth Daily. 11/17/2021 Active tiZANidine (ZANAFLEX) 4 MG tablet TAKE 1/2 TO 1 TABLET BY MOUTH EVERY NIGHT AT BEDTIME FOR MUSCLE SPASMS 01/19/2022 Active multivitamin tablet tablet Take by mouth Daily. Active Active Problems Problem Noted Date Diagnosed Date Osteopenia with normal FRAX 06/01/2021 Acquired hypothyroidism 05/24/2019 Adenomatous colon polyp 01/06/2019 Annual EXCELLENCE LEADER exam S/P TVH with repairs 08/06/2016 Overview (09/25/2024): SCREENING TESTS Year 2011 2012 2013 2014 2015 2016 2017 2018 2019 2020 2021 2022 2023 2024 2025 2026 2027 2028 2029 2030 Age 53 ISAEL [Birads] 1 5 [1] 10 [2] - 1 [2] 10 [1] 11 [0] 1 [3] 7 [3] 5 [2] 5 [1] JOSELYN score 1.4 6.2 Colonoscopy x 8 AP 10 mm Reeder 8 SA & TA Reeder DEXA [T-score] Frax [hip/any] T= -1.3 0.6/7.8 Lipids [LDL / HDL / TG] 104/39/157 Vitamin D 37 TSH 4.61 Enter the month test was performed. 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 Other info: Leno HTN (hypertension) Arthritis Neuropathy of lower extremities Resolved Problems Problem Noted Date Diagnosed Date Resolved Date S/P TVH with vaginal vault s uspension; anterior and posterior colpoperineorrhaphy 01/02/2020 01/02/2020 02/15/2020 Incomplete uterine prolapse 01/02/2020 01/04/2020 Cystocele, uterine descensus with rectocele 12/14/2018 01/02/2020 Pessary maintenance 10/16/2016 12/07/19 20 Overview (12/11/2016): Pessary type and history Date 12/11/2016 Pessary type and size FR #4 Encounters Date Type Department Care Team Description 09/25/2024 Results Follow-Up [facility] PATIENT ACCESS [address] [place] [address] David Fabian MD from Last 3 Months Immunizations Immunization Administration Dates Next Due COVID-19 (MODERNA) 1st,2nd,3rd Dose Monovalent 0 07/01/2020,05/29/2020 Flu Vaccine Split Quad 02/27/2021 Fluzone >6mos 04/10/2016 Shingrix 05/12/2022,03/12/2022 Tdap 05/24/2018 Family History Medical History Relation Name Comments Colon polyps Brother Danielito 50's Colon cancer Mother Endometrial cancer Sister Breast cancer Neg Hx Ovarian cancer Neg Hx Relation Name Status Comments Brother Danielito Alive Mother Sister Social History Tobacco Use Types Packs/Day Years Used Date Smoking Tobacco: Never Smokeless Tobacco: Never Alcohol Use Standard Drinks/Week Comments No 0 (1 standard drink = 0.6 oz pur e alcohol) Comments No Sex and Gender Information Value Date Recorded Sex Assigned at Not on file Legal Sex Female 10:03 AM EDT Gender Identity Not on file Sexual Orientation Not on file Last Filed Vital Signs Vital Sign Reading Time Taken Comments Blood Pressure 126/78 09/15/2024 9:06 AM EDT Pulse 63 01/04/2020 7:00 AM EDT Temperature 37.1 C (98.7 F) 01/04/2020 7:00 AM EDT Respiratory Rate 14 09/15/2024 9:06 AM EDT Oxygen Saturation 92% 01/04/2020 7:00 AM EDT Inhaled Oxygen Concentration - - Weight 74.4 kg (164 lb) 09/15/2024 9:06 AM EDT Height 162.6 cm (5' 4 ) 01/02/2020 6:39 AM EDT Body Mass Index 28.15 01/02/2020 6:39 AM EDT Plan of Treatment Upcoming Encounters Date Type Department Care Team (Late st Contact Info) Description 09/20/2025 9:30 AM EDT Office Visit [facility] OBGYN [address] [address] David Fabian MD [address] [place] [id number] Health Maintenance Due Date Last Done Comments COLOGUARD 08/08/2004 COLON CANCER SCREENING 5 YEA R SIGMOIDOSCOPY 08/08/2004 CT COLONOGRAPHY 08/08/2004 FECAL OCCULT BLOOD TEST 08/08/2004 FIT Testing (1 year) 08/08/2004 Pneumococcal Vaccine 50+ (1 of 1 - PCV) 08/08/2009 ANNUAL WELLNESS VISIT 10/16/2016 HEPATITIS C SCREENING 10/16/2016 COVID-19 Vaccine (2023-2 5 season) 2024 07/01/2020, 05/29/2020 COLONOSCOPY 12/24/2024 12/24/2021, 08/0 07/2021, 01/06/2019 COLORECTAL CANCER SCREENING 12/24/2024 INFLUENZA VACCINE 02/21/2025 02/27/2021, 04/10/2016 DXA SCAN 05/29/2025 05/29/2021 MAMMOGRAM 09/15/2026 09/15/2024, 05/0 12/2023, 06/10/2022, Additional history exists TDAP/TD VACCINES (2 - Td or Tdap) 05/24/2028 019 ZOSTER VACCINE Completed 05/12/2022, 03/12/2022 Procedures Procedure Name Priority Date/Time Associated Diagnosis Comments MAMMO SCREENING DIGITAL TOMOSYNTHESIS BILATERAL W CAD Routine 09/15/2024 11:37 AM EDT Other screening mammogram SCANNED - COLONOSCOPY 12/24/2021 DEXA BONE DENSITY AXIAL Routine 05/29/2021 8:22 AM EST Osteoporosis screening from Last 3 Months or Most Recently Relevant to Health Maintenance Results * Mammo Screening Digital Tomosynthesis Bilateral With CAD (09/15/2024 11:37 AM EDT) Anatomical Region Laterality Modality Breast N/A Mammography 09/22/2024 8:07 PM EDT Impressions 09/22/2024 8:08 PM EDT No findings suspicious for malignancy. ACR BI-RADS CATEGORY: 1, NEGATIVE RECOMMENDATION: Yearly mammogram, yearly clinical breast exam, and encourage self breast awareness. CAD was used. The standard false negative rate of mammography is between 10% and 25%. Complex patterns or increased breast density will markedly elevate the false negative rate of mammography. A letter, in lay terminology, with the results of this exam will be mailed to the patient. If there is a palpable area of concern, biopsy should be considered regardless of imaging findings. 09/22/2024 8:08 PM by Mary Hdz MD on Narrative 09/22/2024 8:08 PM EDT ROUTINE DIGITAL SCREENING MAMMOGRAM WITH TOMOSYNTHESIS HISTORY: Routine screening. IMAGE COMPARISON: Extending to 2021. TECHNIQUE: Low dose full field digital breast tomosynthesis imaging was performed with 2D and 3D acquisitions consisting of bilateral CC and MLO views. FINDINGS: The breasts are predominantly adipose tissue. The fibroglandular pattern appears stable. There is no mass, worrisome microcalcifications, or architectural distortion to suggest development of malignancy. us David Fabian MD IM MAMMOGRAPHY ORDERABLES Final Result * SCANNED - COLONOSCOPY (12/24/2021) us David Fabian MD CHART REVIEW TABS Edite d Result - Final * DEXA Bone Density Axial (05/29/2021 8:22 AM EST) Anatomical Region Laterality Modality Wrist, Hip, L-spine N/A Other 05/29/2021 2:48 PM EST Impressions 05/31/2021 10:13 AM EST Osteopenia of the femoral necks bilaterally. The ten year fracture risk assessment is calculated at 7.8% for major systemic osteoporotic fracture and 0.6% for a hip fracture. Less than 3% risk in the [place] for hip fracture and less than 20% risk of any systemic osteoporotic fracture is considered less than the threshold for where pharmacological therapy is recommended by the National Osteoporosis Foundation. All the treatment decisions require clinical judgment and consideration of individual patient factors, including patient preferences, co-morbidities, previous drug use, risk factors not captured in the FRAX model (frailty, falls, vitamin D deficiency, increased bone turnover, interval significant decline in bone density) and possible under or over estimation of fracture risk by FRAX. Approaches to reduce osteoporosis related fracture risk include optimizing calcium and vitamin D status, appropriate weight bearing exercises and fall-prevention measurements. The National Osteoporosis Foundation recommends (http://www.nof.org/hcp/practice/cxmpojqx-hfs-dzdqfhgo-guidelines/clinic ans-guide) that FDA-approved medical therapies be considered in postmenopausal women and men aged equal or greater than 50 years with : a) hip or vertebral (clinical or morphometric) fracture; b) T-score of -2.5 or less at the spine or hip; c) Ten-year fracture probability by FRAX of greater than 3% for hip fracture of greater than 20% for major osteoporotic fracture. Secondary causes of bone loss should be evaluated if clinically indicated since the etiology of low BMD cannot be determined by BMD measurement alone. FOLLOWUP: Consider repeating the study in 2-3 years to reassess the patient's status or sooner if there is some new clinical indication. INTERVAL CHANGE: There were no equivalent studies available for comparison. At this facility, the least significant change in the BMD at the left hip with 95% confidence is 0.173813 gm/cm2 at the hip and 0.104828 g/cm2 at the lumbar spine. This report was finalized on 05/31/2021 10:[address] Jewell Wagoner MD. Narrative 05/31/2021 10:13 AM EST DUAL-ENERGY X-RAY ABSORPTIOMETRY (DXA) INDICATION: Postmenopausal, screening for osteoporosis, hysterectomy COMPARISON: There are no equivalent studies available for comparison PROCEDURE: A DXA scan was performed using a Hologic densitometer. The lumbar spine L1-L4 was evaluated as well as bilateral total hip. The T-score compares the patient's bone mineral density with the peak bone mass of young normal patients. According to criteria established by the World Health Organization, patients with T-scores between 1.0 and 2.5 standard deviations BELOW the mean are osteopenic (low bone mass). Patients with T-scores EQUAL TO OR GREATER than 2.5 standard deviations below the mean are osteoporotic. The Z-score compares the patient bone mineral density with age and sex matched peers. According to the International Society for Clinical Densitometry's 2007 consensus conference: In women prior to menopause and men less than age 50, Z-scores, not T-scores are preferred. A Z-score of -2.0 or lower is defined as below the expected range for age and a Z-score above -2.0 is within the expected range for age. The WHO diagnostic criteria may be applied in women in the menopausal transition. Osteoporosis cannot be diagnosed in men under age 50 on the basis of BMD alone. TECHNICAL QUALITY: The study is of good technical quality. RESULTS: Lumbar Spine: The BMD measured in the L1-L4 region is 1.118 g/cm2. The average T-score is 0.6. The Z-score is 2.2. Total Hip: The BMD measured at the left total proximal femur is 0.894 g/cm2. The T-score is -0.4. The Z-score is 0.6. Femoral Neck: The BMD measured at the left femoral neck is 0.723 g/cm2. The T-score is -1.1. The Z-score is 0.2. Total Hip: The BMD measured at the right total proximal femur is 0.905 g/cm2. The T-score is -0.3. The Z-score is 0.7. Femoral neck: The BMD measured at the right femoral neck is 0.704 g/cm2. The T score is -1.3. The Z score is 0.1. Procedure Note Serena Rowley PA - 05/31/2021 DUAL-ENERGY X-RAY ABSORPTIOMETRY (DXA) INDICATION: Postmenopausal, screening for osteoporosis, hysterectomy COMPARISON: There are no equivalent studies available for comparison PROCEDURE: A DXA scan was performed using a Hologic densitometer. The lumbar spine L1-L4 was evaluated as well as bilateral total hip. The T-score compares the patient's bone mineral density with the peak bone mass of young normal patients. According to criteria established by the World Health Organization, patients with T-scores between 1.0 and 2.5 standard deviations BELOW the mean are osteopenic (low bone mass). Patients with T-scores EQUAL TO OR GREATER than 2.5 standard deviations below the mean are osteoporotic. The Z-score compares the patient bone mineral density with age and sex matched peers. According to the International Society for Clinical Densitometry's 2007 consensus conference: In women prior to menopause and men less than age 50, Z-scores, not T-scores are preferred. A Z-score of -2.0 or lower is defined as below the expected range for age and a Z-score above -2.0 is within the expected range for age. The WHO diagnostic criteria may be applied in women in the menopausal transition. Osteoporosis cannot be diagnosed in men under age 50 on the basis of BMD alone. TECHNICAL QUALITY: The study is of good technical quality. RESULTS: Lumbar Spine: The BMD measured in the L1-L4 region is 1.118 g/cm2. The average T-score is 0.6. The Z-score is 2.2. Total Hip: The BMD measured at the left total proximal femur is 0.894 g/cm2. The T-score is -0.4. The Z-score is 0.6. Femoral Neck: The BMD measured at the left femoral neck is 0.723 g/cm2. The T-score is -1.1. The Z-score is 0.2. Total Hip: The BMD measured at the right total proximal femur is 0.905 g/cm2. The T-score is -0.3. The Z-score is 0.7. Femoral neck: The BMD measured at the right femoral neck is 0.704 g/cm2. The T score is -1.3. The Z score is 0.1. IMPRESSION: Osteopenia of the femoral necks bilaterally. The ten year fracture risk assessment is calculated at 7.8% for major systemic osteoporotic fracture and 0.6% for a hip fracture. Less than 3% risk in the [place] for hip fracture and less than 20% risk of any systemic osteoporotic fracture is considered less than the threshold for where pharmacological therapy is recommended by the National Osteoporosis Foundation. All the treatment decisions require clinical judgment and consideration of individual patient factors, including patient preferences, co-morbidities, previous drug use, risk factors not captured in the FRAX model (frailty, falls, vitamin D deficiency, increased bone turnover, interval significant decline in bone density) and possible under or over estimation of fracture risk by FRAX. Approaches to reduce osteoporosis related fracture risk include optimizing calcium and vitamin D status, appropriate weight bearing exercises and fall-prevention measurements. The National Osteoporosis Foundation recommends (http://www.nof.org/hcp/practice/tzqflodn-inl-anqsciiw-guidelines/clinic ans-guide) that FDA-approved medical therapies be considered in postmenopausal women and men aged equal or greater than 50 years with : a) hip or vertebral (clinical or morphometric) fracture; b) T-score of -2.5 or less at the spine or hip; c) Ten-year fracture probability by FRAX of greater than 3% for hip fracture of greater than 20% for major osteoporotic fracture. Secondary causes of bone loss should be evaluated if clinically indicated since the etiology of low BMD cannot be determined by BMD measurement alone. FOLLOWUP: Consider repeating the study in 2-3 years to reassess the patient's status or sooner if there is some new clinical indication. INTERVAL CHANGE: There were no equivalent studies available for comparison. At this facility, the least significant change in the BMD at the left hip with 95% confidence is 0.526921 gm/cm2 at the hip and 0.566817 g/cm2 at the lumbar spine. This report was finalized on 05/31/2021 10:[address] Jewell Wagoner MD. us David Fabian MD IMG DXA ORDERABLES Final R esult from Last 3 Months or Most Recently Relevant to Health Maintenance Insurance [facility] Medicare [employer] PPO Advance Directives * CPR (Attempt to Resuscitate) (Latest Code Status on File) Date Activated Date Inactivated Comments 01/02/2020 12:31 PM 01/04/2020 5:56 PM Question Answer Comments Code Status (Patient has no pulse and is not breathing): CPR (Attempt to Resuscitate) Medical Interventions (Patie nt has pulse or is breathing): Full Level Of Support Discussed With: Patient Care Teams Curriculum Specialist Relationship Specialty Start Date End Date Michael Perdomo MD [address] [facility] [address] [place] [address] PCP - General Family Medicine 04/03/22
--- OUTSIDE RECORDS SUMMARY | 2024-12-22 10:53 | XMS_ITS | Encounter Summary ---
Author Organization [employer] ([place], [place], [place], [place]) Address [address] [place] [address] Care Team Providers Care Space And Missile Operations Name Role Phone Michael Perdomo MD Primary Care Provider [phone] Encounter Details Date Type Department Care Team (Late st Contact Info) Description 11/02/2024 Orders Only [facility] Neurology - [facility] [address] [place] [address] Serena Martinez MD [address] [place] [address] Polyneuropathy (Primary Dx) Social History Tobacco Use Types Packs/Day Years Used Date Smoking Tobacco: Never Smokeless Tobacco: Never Alcohol Use Standard Drinks/Week Comments Never 0 (1 standard drink = 0.6 oz pur e alcohol) Family and Community Support Answer [place] e Recorded Help with Day to Day Activities Not on file 06/04/2023 Feeling Lonely or Isolated Not on file 06/04 Educational Attainment Answer Date Felipe rded Speak language other than Tanzanian at home Not on file 06/04/2023 Want [...] on file documented as of this encounter Progress Notes * Serena Martinez MD - 11/02/2024 3:55 PM EDT Sent in Gabapentin, will appeal Gabapentin ER documented in this encounter Plan of Treatment Upcoming Encounters Date Type Department Care Team (Late st Contact Info) Description 05/01/2025 9:45 AM EST Office Visit [facility] Neurology - [facility] [address] [address] [place] [id number] Serena Martinez MD [address] [facility] [address] [place] [address] documented as of this encounter Visit Diagnoses Diagnosis Polyneuropathy- Primary Unspecified hereditary and idiopathic peripheral neuropathy documented in this encounter Care Teams Space And Missile Operations Relationship Specialty Start Date End Date Michael Perdomo MD [address] [facility] [address] [place] [address] PCP - General Family Medicine 04/27/22 documented as of this encounter
--- OUTSIDE RECORDS SUMMARY | 2024-12-22 10:53 | XMS_ITS | Encounter Summary ---
Author Organization [employer] ([place], [place], [place], [place]) Address [address] [place] [address] Care Team Providers Care Engineer Exhauster Name Role Phone Michael Perdomo MD Primary Care Provider [phone] Encounter Details Date Type Department Care Team (Late st Contact Info) Description 11/10/2024 Orders Only [facility] Neurology - [facility] [address] [place] [address] Serena Martinez MD [address] [place], [place] [id number] Post herpetic neuralgia Social History Tobacco Use Types Packs/Day Years [...] Date Felipe rded Speak language other than [place] at home Not on file 06/04/2023 Want [...] Progress Notes * Serena Martinez MD - 11/10/2024 11:06 AM EDT Gralise now approved so sent in documented in this encounter Plan of Treatment Upcoming Encounters Date Type Department Care Team (Late st Contact Info) Description 05/01/2025 9:45 AM EST Office Visit [facility] Neurology - [facility] [address] [facility] [address] [address] [address] [address] [place] [id number] Serena Martinez MD [address] [facility] [address] [place] [address] documented as of this encounter Visit Diagnoses Diagnosis Post herpetic neuralgia Herpes zoster with other nervous system complications documented in this encounter Care Teams Engineer Exhauster Relationship Specialty Start Date End Date Michael Perdomo MD [address] [facility] [address] [place] [address] PCP - General Family Medicine 04/27/22 documented as of this encounter
--- OUTSIDE RECORDS SUMMARY | 2024-12-22 10:53 | XMS_ITS | Referral Summary ---
Author Organization [employer] ([place], [place], [place], [place]) Address [address] [place] [address] Care Team Providers Care Flying Teacher Name Role Phone Michael Perdomo MD Primary Care Provider [phone] Encounters Date Type Department Care Team Description 11/10/2024 Orders Only [facility] Neurology - [facility] [address] [place] [address] Serena Martinez MD Post herpetic neuralgia 11/02/2024 Orders Only [facility] Neurology - [facility] [address] [place] [address] Serena Martinez MD Polyneuropathy (Primary Dx) 10/27/2024 Orders Only [facility] Neurology - [facility] [address] [place] [address] Serena Martinez MD Post herpetic neuralgia (Primary Dx); Idiopathic polyneuropathy; Balance problems; Polyneuropathy 10/24/2024 9:45 AM EDT Office Visit [facility] Neurology - [facility] [address] [place] [address] Serena Martinez MD Idiopathic polyneuropathy (Primary Dx); Other fatigue; Avitaminosis D; Balance problems from Last 3 Months Allergies Active Allergy Reactions Criticality Noted Date Comments Amoxicillin-Pot Clavulanate 04/27/20 Codeine 04/27/2022 Prednisone 04/27/2022 Medications levothyroxine (SYNTHROID, LEVOTHROID) 25 MCG tablet Take 25 mcg by mouth daily. 04/02/2022 Active meloxicam (MOBIC) 15 MG tablet Take 15 mg by mouth daily. Active multivitamin capsule Take 1 capsule by mouth daily. Active cyanocobalamin (VITAMIN B-12) 1000 MCG tablet Take 1,000 mcg by mouth daily. Active cholecalciferol , vitamin D3, 25 mcg (1,000 unit) capsule Take 1,000 Units by mouth daily. Active tiZANidine (ZANAFLEX) 4 MG tabletIndicatio ns:Polyneuropat hy Take 1 tablet (4 mg total) by mouth nightly. 90 tablet 3 05/10/2024 Active gabapentin (GRALISE) 600 mgIndications:p ostherpetic neuralgia Take 3 tablets (1,800 mg total) by mouth daily with dinner for 180 days. Max Daily Amount: 1,800 mg 270 tablet 1 10/27/2024 5 Active gabapentin (NEURONTIN) 600 MG tabletIndicatio ns:Polyneuropat hy Take 1 tablet (600 mg total) by mouth 2 (two) times daily. Max Daily Amount: 1,200 mg 60 tablet 1 11/02/2024 6 Active Gralise 600 mgIndications:P ost herpetic neuralgia Take 3 tablets (1,800 mg total) by mouth nightly. Max Daily Amount: 3 tablets 270 tablet 1 11/10/2024 Active Hospital, Clinic, or Other Facility Administered Medication Ordered Dose Route Frequency Start Date End Date Status lidocaine (XYLOCAINE) injection 1%Indications:S/P carpal tunnel release 4 mL OTHER Once 03/22/2023 Act gary Active Problems Problem Noted Date Diagnosed Date S/P carpal tunnel release, left, [place] Guided 04/08 Social History Tobacco Use Types Packs/Day Years [...] Date Felipe rded Speak language other than Zambian at home Not on file 06/04/2023 Want [...] AM EDT Temperature - - Respiratory Rate 18 04/08/2023 8:22 AM EST Oxygen Saturation - - Inhaled Oxygen Concentration - - Weight 73.9 kg (163 lb) 10/24/2024 9:37 AM EDT Height 162.6 cm (5' 4 ) 10/24/2024 9:37 AM EDT Body Mass Index 27.98 10/24/2024 9:37 AM EDT Plan of Treatment Upcoming Encounters Date Type Department Care Team (Late st Contact Info) Description 05/01/2025 9:45 AM EST Office Visit [facility] Neurology - [facility] [address] [place] [address] [address] [place] [address] Serena Martinez MD [address] [facility] [address] [place] [address] Procedures Procedure Name Priority Date/Time Associated Diagnosis Comments CBC DIFF AMBIGUOUS DEFAULT Routine 10/24/2024 10:32 AM EDT VITAMIN B6, PLASMA Routine 10/24/2024 10 :32 [...] Other fatigue Avitaminosis D Balance problems VITAMIN D, 25-HYDROXY Routine 10/24/2024 10:32 AM EDT Idiopathic polyneuropathy Other fatigue Avitaminosis D Balance problems VITAMIN B12 W REFLEX <400 Routine 10/24/2024 10:32 AM EDT Idiopathic polyneuropathy Other fatigue Avitaminosis D Balance problems from Last 3 Months Results * (ABNORMAL) Vitamin B12 w reflex <400 (10/24/2024 10:32 AM EDT) Vitamin B12 1,679(H) 232 - 1,245 pg/mL [facility] 10/24/2024 10:3 2 AM EDT 10/24/2024 Narrative [facility] - 11/01/2024 3:06 AM EDT Performed at: - [place] [id number] Pv Design And Installation Technician: Gerry Rivera PhD, Phone: [phone] us Serena Martinez MD LAB BLOOD ORDERABLES Final [facility] esult [facility] * Vitamin B1 (Thiamine), Whole Blood, LC/MS/MS (10/24/2024 10:32 AM EDT) Vit. B1, Whole Blood 104.2 66.5 - 200.0 nmol/L [facility] 10/24/2024 10:3 2 AM EDT 10/24/2024 [facility] - 11/01/2024 3:06 AM EDT Test(s) [id number]-Vlc. B1, Whole Blood was developed and its performance characteristics determined by [facility]. It has not been cleared or approved by the Food and Drug Administration. Performed at: 02 - [facility] [address] [place], [place] [id number] Pv Design And Installation Technician: Rita Montoya MD, Phone: [phone] us Serena Martinez MD LAB BLOOD ORDERABLES Final R esult [facility] * CBCDIFF AMBIGUOUS DEFAULT (10/24/2024 10:32 AM [...] have assigned CBC with Differential/Platelet, Test Code #[id number] to this request. If this is not the testing you wished to receive on this specimen, please contact the [facility] Client Inquiry/ Technical Services Department to clarify the test order. We appreciate your business. 10/24/2024 10:3 2 AM EDT 10/24/2024 Narrative [facility] - 11/01/2024 3:06 AM EDT Performed at: - [address] [id number] Pv Design And Installation Technician: Gerry Rivera PhD, Phone: [phone] us Serena Martinez MD LAB BLOOD ORDERABLES Final R esult Performing Organization Address [facility] Co de Phone Number [facility] * Vitamin D, 25-Hydroxy (10/24/2024 10:32 AM EDT) Pathologist [facility] Vitamin D, 25-Hydroxy 44.3 30.0 - 100.0 ng/mL [facility] Comment: Vitamin D deficiency has been defined by the [place] of Medicine and an Endocrine Society practice guideline as a level of serum 25-OH vitamin D less than 20 ng/mL (1,2). The Endocrine Society went on to further define vitamin D insufficiency as a level between 21 and 29 ng/mL (2). 1. IOM ([place] of Medicine). 2010. Dietary reference intakes for calcium and D. [place]: The National Academies Press. 2. Leslie MF, Felicita CRISTOBAL, Lizbeth BUCKNER, et al. Evaluation, treatment, and prevention of vitamin D deficiency: an Endocrine Society clinical practice guideline. JCEM. 2010; 96(7):1911-30. Blood 10/24/2024 10:3 2 AM EDT 10/24/2024 Narrative [facility] - 11/01/2024 3:06 AM EDT Performed at: - [address] [id number] Pv Design And Installation Technician: Gerry Rivera PhD, Phone: [phone] us Serena Martinez MD LAB BLOOD ORDERABLES Final R esult Performing Organization Address [facility] Co de Phone Number [facility] * Vitamin B6, Plasma (10/24/2024 10:32 AM EDT) [facility] Vitamin B6 9.8 3.4 - 65.2 ug/L [facility] Comment: Deficiency: <3.4 Marginal: 3.4 - 5.1 Adequate: >5.1 Blood 10/24/2024 10:3 2 AM EDT 10/24/2024 Narrative [facility] - 11/01/2024 3:06 AM EDT Test(s) [id number]-Rpvlvdo B6 was developed and its performance characteristics determined by [facility]. It has not been cleared or approved by the Food and Drug Administration. Performed at: - [address] [id number] Pv Design And Installation Technician: Rita Montoya MD, Phone: [phone] Serena Martinez MD LAB BLOOD ORDERABLES Final R esult Performing Organization Address [facility] de Phone Number [facility] * Folate, Serum (10/24/2024 10:32 AM EDT) [facility] Folate (Folic Acid), Serum >20.0 >3.0 ng/mL [facility] Comment: A serum folate concentration of less than 3.1 ng/mL is considered to represent clinical deficiency. Blood 10/24/2024 10:3 2 AM EDT 10/24/2024 Narrative [facility] - 11/01/2024 3:06 AM EDT Performed at: - [address] [id number] Pv Design And Installation Technician: Gerry Rivera PhD, Phone: [phone] us Serena Martinez MD LAB BLOOD ORDERABLES Final R esult Performing Organization Address City/[facility] Co de Phone Number [facility] * Comprehensive metabolic panel (10/24/2024 10:32 AM EDT) [facility] Glucose, Serum 73 70 - 99 mg/dL [...] 3:06 AM EDT Performed at: 01 - [facility] [id number] Pv Design And Installation Technician: Gerry Rivera PhD, Phone: [phone] us Serena Martinez MD LAB BLOOD ORDERABLES Final R esult [facility] from Last 3 Months Insurance [facility] MEDICARE PPO Care Teams Flying Teacher Relationship Specialty Start Date End Date Michael Perdomo MD [address] [facility] [address] [place] [address] PCP - General Family Medicine 04/27/22
--- OUTSIDE RECORDS SUMMARY | 2024-12-22 10:53 | XMS_ITS | Encounter Summary ---
Author Organization [employer] ([place], [place], [place], [place]) Address [address] [place] [address] Care Team Providers Care Bridge Ironworker Helper Name Role Phone Michael Perdomo MD Primary Care Provider [phone] Reason for Visit * Reason Comments Medication Refill Encounter Details Date Type Department Care Team (Late st Contact Info) Description 07/06/2023 Refill [facility] Neurology - [facility] [address] [facility] [address] [place] [address] Serena Martinez MD [address] [facility] [address] [place] [address] Polyneuropathy Social History Tobacco Use Types Packs/Day [...] Date Felipe rded Speak language other than Bolivian at home Not on file 06/04/2023 Want [...] Description 05/01/2025 9:45 AM EST Office Visit [facility] Neurology - [facility] [address] [facility] [address] [place] [address] Serena Martinez MD [address] [facility] [address] [place] [address] documented as of this encounter Visit Diagnoses Diagnosis Polyneuropathy Unspecified hereditary and idiopathic peripheral neuropathy documented in this encounter Care Teams Bridge Ironworker Helper Relationship Specialty Start Date End Date Michael Perdomo MD [address] [facility] [address] [place] [address] PCP - General Family Medicine 04/27/22 documented as of this encounter
--- OUTSIDE RECORDS SUMMARY | 2024-12-22 10:53 | XMS_ITS | Encounter Summary ---
Author Organization [employer] ([place], [place], [place], [place]) Address [address] [place] [address] Care Team Providers Care Handmade Tile Artist Name Role Phone Michael Perdomo MD Primary Care Provider [phone] Encounter Details Date Type Department Care Team (Late st Contact Info) Description 10/27/2024 Orders Only [facility] Neurology - [facility] [address] [facility] [place] [address] Serena Martinez MD [address] [place] [address] Post herpetic neuralgia (Primary Dx); Idiopathic polyneuropathy; Balance problems; Polyneuropathy Social History Tobacco Use Types Packs/Day [...] Description 05/01/2025 9:45 AM EST Office Visit [facility] Neurology - [facility] [address] [place] [address] Sernea Martinez MD [address] [facility] [address] [place], [place] [address] documented as of this encounter Visit Diagnoses Diagnosis Post herpetic neuralgia- Primary Herpes zoster with other nervous system complications Idiopathic polyneuropathy Balance problems Abnormality of gait Polyneuropathy Unspecified hereditary and idiopathic peripheral neuropathy documented in this encounter Care Teams Handmade Tile Artist Relationship Specialty Start Date End Date Michael Perdomo MD [address] [facility] [address] [place] [address] PCP - General Family Medicine 04/27/22 documented as of this encounter
--- OUTSIDE RECORDS SUMMARY | 2024-12-22 10:53 | XMS_ITS | Clinical Summary ---
Author Organization [email or web address] ([place], [place], [place], [place]) Address [address] [place] [address] Care Team Providers Care Dock Supervisor Name Role Phone Michael Perdomo MD Primary Care Provider [phone] Allergies Active Allergy Reactions Criticality Noted Date [...] Amount: 1,800 mg 270 tablet 1 10/27/2024 Active gabapentin (NEURONTIN) 600 MG tabletIndicatio ns:Polyneuropat hy Take 1 tablet (600 mg total) by mouth 2 (two) times daily. Max Daily Amount: 1,200 mg 60 tablet 1 11/02/2024 Active Gralise 600 mgIndications:P ost herpetic neuralgia [...] carpal tunnel release, left, [place] Guided 04/08 Encounters Date Type Department Care Team Description 11/10/2024 Orders Only [facility] Neurology - [facility] [address] [place] [address] Serena Martinez MD Post herpetic neuralgia 11/02/2024 Orders Only [facility] Neurology - [facility] [address] [place] [address] Serena Martinez MD Polyneuropathy (Primary Dx) 10/27/2024 Orders Only [facility] Neurology - [facility] [address] [place] [address] Serena Martinez MD Post herpetic neuralgia (Primary Dx); Idiopathic polyneuropathy; Balance problems; Polyneuropathy 10/24/2024 9:45 AM EDT Office Visit [facility] Neurology - [facility] [address] [place] [address] Serena Martinez MD Idiopathic polyneuropathy (Primary Dx); Other fatigue; Avitaminosis D; Balance problems from Last 3 Months Family History Medical History Relation Name Comments Diabetes Other Relation Name Status Comments Other Social History Tobacco Use Types Packs/Day Years [...] Date Felipe rded Speak language other than Slovak at home Not on file 06/04/2023 Want [...] Description 05/01/2025 9:45 AM EST Office Visit [facility] Neurology - [facility] [address] [place] [address] Serena Martinez MD [address] [facility] [address] [place] [address] Health Maintenance Due Date Last Done Comments CT Colonography 1959 Colonoscopy 1959 Colorectal Cancer Screening 1959 DXA SCAN 1959 FOBT/FIT 1959 Fit-DNA (Cologuard) 1959 Sigmoidoscopy 1959 Depression Screening (12+) 1971 HIV Screening 08/08/1974 Hepatitis C Screening 08/08/1977 Lipid Panel 08/08/2004 Pneumococcal 50+ years (1 of 1 - PCV) 08/08/2009 COVID-19 VACCINE ( season) 01/23/202412/2020, 05/29/2020 Medicare IPPE (Welcome to Medicare) [id number] 07/22/2024 Influenza Vaccine (#1) 2025 Tobacco Cessation Counseling and Screening (12+) 10/24/2025 10/24/2024 Breast Cancer Screening 09/15/2026 09/15/2024, 09/28 Pap Smear 09/16/2027 09/15/2024 DTAP/TDAP/TD VACCINES (2 - Td or Tdap) 05/24/2028 Respiratory Syncytial Virus (RSV) Adult or (1 - 1-dose 75+ series) 08/08/2034 Shingles Vaccine (Zoster) Completed 05/12/2022, Falls Risk Screening Completed 10/24/2024 Procedures Procedure Name Priority Date/Time Associated Diagnosis [...] w reflex <400 (10/24/2024 10:32 AM EDT) [facility] Vitamin B12 1,679(H) 232 - 1,245 pg/mL [facility] 10/24/2024 10:3 2 AM EDT 10/24/2024 Narrative [facility] - 11/01/2024 3:06 AM EDT Performed at: - [address] [id number] Metal Cabinet Finisher: Gerry Rivera PhD, Phone: [phone] Serena Martinez MD LAB BLOOD ORDERABLES Final R esult Performing Organization Address [facility] Co de Phone Number [facility] * Vitamin B1 (Thiamine), Whole Blood, LC/MS/MS (10/24/2024 10:32 AM EDT) [facility] Vit. B1, Whole Blood 104.2 66.5 - 200.0 nmol/L [facility] 10/24/2024 10:3 2 AM EDT 10/24/2024 Narrative [facility] - 11/01/2024 3:06 AM EDT Test(s) [id number]-Owl. B1, Whole Blood was developed and its performance characteristics determined by [facility]. It has not been cleared or approved by the Food and Drug Administration. Performed at: - [address] [id number] Metal Cabinet Finisher: Rita Montoya MD, Phone: [phone] Serena Martinez MD LAB BLOOD ORDERABLES Final R esult [facility] * CBCDIFF AMBIGUOUS DEFAULT (10/24/2024 10:32 AM EDT) [facility] WBC 7.1 3.4 - 10.8 x10E3/uL [facility] [...] have assigned CBC with Differential/Platelet, Test Code #[id number] to this request. If this is not the testing you wished to receive on this specimen, please contact the [facility] Client Inquiry/ Technical Services Department to clarify the test order. We appreciate your business. 10/24/2024 10:3 2 AM EDT 10/24/2024 Narrative [facility] - 11/01/2024 3:06 AM EDT Performed at: 01 - [address] [id number] Metal Cabinet Finisher: Gerry Rivera PhD, Phone: [phone] us Serena Martinez MD LAB BLOOD ORDERABLES Final R esult [facility] * Vitamin D, 25-Hydroxy (10/24/2024 10:32 AM EDT) Vitamin D, 25-Hydroxy 44.3 30.0 - 100.0 ng/mL [facility] Comment: Vitamin D deficiency has been defined by the [place] of Medicine and an Endocrine Society practice guideline as a level of serum 25-OH vitamin D less than 20 ng/mL (1,2). The Endocrine Society went on to further define vitamin D insufficiency as a level between 21 and 29 ng/mL (2). 1. IOM ([place] of Medicine). 2010. Dietary reference intakes for calcium and D. [place]: The National Academies Press. 2. Leslie MF, Felicita CRISTOBAL, Lizbeth BUCKNER, et al. Evaluation, treatment, and prevention of vitamin D deficiency: an Endocrine Society clinical practice guideline. JCEM. 2010; 96(7):1911-30. Blood 10/24/2024 10:3 2 AM EDT 10/24/2024 Narrative [facility] - 11/01/2024 3:06 AM EDT Performed at: - [address] [id number] Metal Cabinet Finisher: Gerry Rivera PhD, Phone: [phone] us Serena Martinez MD LAB BLOOD ORDERABLES Final R esult [facility] * Vitamin B6, Plasma (10/24/2024 10:32 AM EDT) Vitamin B6 9.8 3.4 - 65.2 ug/L [facility] Comment: Deficiency: <3.4 Marginal: 3.4 - 5.1 Adequate: >5.1 Blood 10/24/2024 10:3 2 AM EDT 10/24/2024 Narrative [facility] - 11/01/2024 3:06 AM EDT Test(s) [id number]-Prokwnh B6 was developed and its performance characteristics determined by [facility]. It has not been cleared or approved by the Food and Drug Administration. Performed at: - [address] [id number] Metal Cabinet Finisher: Rita Montoya MD, Phone: [phone] Serena Martinez MD LAB BLOOD ORDERABLES Final R esult [facility] * Folate, Serum (10/24/2024 10:32 AM EDT) Pathologist [facility] Folate (Folic Acid), Serum >20.0 >3.0 ng/mL [facility] Comment: A serum folate concentration of less than 3.1 ng/mL is considered to represent clinical deficiency. Blood 10/24/2024 10:3 2 AM EDT 10/24/2024 Narrative [facility] - 11/01/2024 3:06 AM EDT Performed at: [address] [place] [id number] Metal Cabinet Finisher: Gerry Rivera PhD, Phone: [phone] us Serena Martinez MD LAB BLOOD ORDERABLES Final R esult Performing Organization Address City/[facility]/ZIP Co de Phone Number [facility] * Comprehensive metabolic panel (10/24/2024 10:32 AM EDT) Pathologist [facility] Glucose, Serum 73 70 - 99 mg/dL [...] AM EDT Performed at: 01 - [facility] [address] [id number] Metal Cabinet Finisher: Gerry Rivera PhD, Phone: [phone] us Serena Martinez MD LAB BLOOD ORDERABLES Final R esult [facility] from Last 3 Months Insurance [facility] MEDICARE PPO Care Teams Dock Supervisor Relationship Specialty Start Date End Date Michael Perdomo MD [address] [place] [email or web address] [address] [place] [address] PCP - General Family Medicine 04/27/22
== END 2024-12-22 23:59 | disposition home or self-care (01) ==
LOC: RAD 10:50
PROVIDERS: PCP Family Medicine; Visit Provider Family Medicine
DX: M72.2 Plantar fascial fibromatosis (principal); M19.071 Primary osteoarthritis, right ankle and foot
CPT/HCPCS: 73630